=== PATIENT | female | born 1940 | race Caucasian/White ===

== ENCOUNTER 2017-06-16 12:59 | Outpatient (RCR) | payer MEDICARE, OTHER, SELFPAY ==
[2017-06-16 13:12] LABS: Prothrombin Time Fingerstick 29.8 SEC (11.9-14.4)
== END 2017-06-16 13:30 | disposition home or self-care (01) ==
LOC: LAB 12:59
PROVIDERS: Family Provider Family Medicine; PCP Family Medicine; Visit Provider Internal Medicine Cardiovascular Disease
DX: I48.1 Persistent atrial fibrillation (principal); Z79.01 Long term (current) use of anticoagulants
CPT/HCPCS: 36416; 85610

== ENCOUNTER 2017-07-22 13:50 | Outpatient (RCR) | payer MEDICARE, OTHER, SELFPAY ==
[2017-07-22 14:06] LABS: Prothrombin Time Fingerstick 26.5 SEC (11.9-14.4)
== END 2017-07-22 15:00 | disposition home or self-care (01) ==
LOC: LAB 13:50
PROVIDERS: Visit Provider Internal Medicine Cardiovascular Disease
DX: I48.1 Persistent atrial fibrillation (principal); Z79.01 Long term (current) use of anticoagulants
CPT/HCPCS: 36416; 85610

== ENCOUNTER 2017-08-18 14:07 | Outpatient (RCR) | payer MEDICARE, OTHER, SELFPAY ==
[2017-08-18 14:46] LABS: Prothrombin Time Fingerstick 33.6 SEC (11.9-14.4)
== END 2017-08-18 15:00 | disposition home or self-care (01) ==
LOC: LAB 14:07
PROVIDERS: Visit Provider Internal Medicine Cardiovascular Disease
DX: I48.1 Persistent atrial fibrillation (principal); Z79.01 Long term (current) use of anticoagulants
CPT/HCPCS: 36416; 85610

== ENCOUNTER → 2017-09-01 08:20 | Outpatient (CLI) | payer MEDICARE, OTHER, SELFPAY ==
[2017-09-01 10:37] LABS: AST(SGOT) 21 U/L (15-37); Alanine Aminotransfer ALT/SGPT 25 U/L (13-56); Albumin, Serum 3.2 g/dL (3.2-5.0); Alkaline Phosphatase 51 U/L (45-117); Bilirubin, Direct 0.14 mg/dL (0.00-0.30); Cholesterol 150 mg/dL (200); Globulin 3.5 g/dL (2.2-4.2); High Density Lipoprotein 69 mg/dL; Protein, Total 6.7 g/dL (6.4-8.2); Triglycerides 92 mg/dL; Very Low Density Lipoprotein 18 mg/dL (5-40)
== END ==
DX: E78.00 Pure hypercholesterolemia, unspecified (principal)
CPT/HCPCS: 36415; 80061; 80076

== ENCOUNTER 2017-09-18 13:08 | Outpatient (RCR) | payer MEDICARE, OTHER, SELFPAY ==
[2017-09-18 13:26] LABS: Prothrombin Time Fingerstick 38.6 SEC (11.9-14.4)
== END 2017-09-18 14:00 | disposition home or self-care (01) ==
LOC: LAB 13:08
PROVIDERS: Visit Provider Internal Medicine Cardiovascular Disease
DX: I48.1 Persistent atrial fibrillation (principal); Z79.01 Long term (current) use of anticoagulants
CPT/HCPCS: 36416; 85610

== ENCOUNTER 2017-10-30 13:44 | Outpatient (RCR) | payer MEDICARE, OTHER, SELFPAY ==
[2017-10-09 08:30] LABS: Prothrombin Time Fingerstick 30.2 SEC (11.9-14.4)
== END 2017-10-30 14:00 | disposition home or self-care (01) ==
LOC: LAB 13:44
PROVIDERS: Visit Provider Internal Medicine Cardiovascular Disease
DX: I48.1 Persistent atrial fibrillation (principal); Z79.01 Long term (current) use of anticoagulants
CPT/HCPCS: 36416; 85610

== ENCOUNTER 2017-12-04 13:21 | Outpatient (RCR) | payer MEDICARE, OTHER, SELFPAY | END 2017-12-04 14:00 | disposition home or self-care (01) | LOC: LAB 13:21 | PROVIDERS: Visit Provider Internal Medicine Cardiovascular Disease | DX: I48.1 Persistent atrial fibrillation (principal); Z79.01 Long term (current) use of anticoagulants | CPT/HCPCS: 36416; 85610 ==

== ENCOUNTER 2017-12-30 12:40 | Outpatient (RCR) | payer MEDICARE, OTHER, SELFPAY ==
[2017-12-30 14:01] LABS: Prothrombin Time Fingerstick 30.4 SEC (11.9-14.4)
== END 2017-12-30 14:00 | disposition home or self-care (01) ==
LOC: LAB 12:40
PROVIDERS: Visit Provider Internal Medicine Cardiovascular Disease
DX: I48.1 Persistent atrial fibrillation (principal); Z79.01 Long term (current) use of anticoagulants
CPT/HCPCS: 36416; 85610

== ENCOUNTER → 2018-01-19 10:25 | Outpatient (CLI) | payer MEDICARE, OTHER, SELFPAY | PROVIDERS: Visit Provider Obstetrics & Gynecology | DX: Z12.31 Encounter for screening mammogram for malignant neoplasm of breast (principal) | CPT/HCPCS: 77063; 77067 ==

== ENCOUNTER 2018-01-29 08:48 | Outpatient (RCR) | payer MEDICARE, OTHER, SELFPAY ==
[2018-01-29 09:06] LABS: Prothrombin Time Fingerstick 17.5 SEC (11.9-14.4)
== END 2018-01-29 10:00 | disposition home or self-care (01) ==
LOC: LAB 08:48
PROVIDERS: Visit Provider Internal Medicine Cardiovascular Disease
DX: I48.1 Persistent atrial fibrillation (principal); Z79.01 Long term (current) use of anticoagulants
CPT/HCPCS: 36416; 85610

== ENCOUNTER 2018-02-26 14:16 | Outpatient (RCR) | payer MEDICARE, OTHER, SELFPAY ==
[2018-02-26 14:30] LABS: Prothrombin Time Fingerstick 31.6 SEC (11.9-14.4)
== END 2018-02-26 16:00 | disposition home or self-care (01) ==
LOC: LAB 14:16
PROVIDERS: Visit Provider Internal Medicine Cardiovascular Disease
DX: I48.91 Unspecified atrial fibrillation (principal); Z79.01 Long term (current) use of anticoagulants
CPT/HCPCS: 36416; 85610

== ENCOUNTER 2018-03-20 13:33 | Outpatient (RCR) | payer MEDICARE, OTHER, SELFPAY ==
[2018-03-20 13:45] LABS: Prothrombin Time Fingerstick 28.4 SEC (11.9-14.4)
== END 2018-03-20 15:00 | disposition home or self-care (01) ==
LOC: LAB 13:33
PROVIDERS: Referring Provider Internal Medicine Cardiovascular Disease; Visit Provider Internal Medicine Cardiovascular Disease
DX: I48.91 Unspecified atrial fibrillation (principal); Z79.01 Long term (current) use of anticoagulants
CPT/HCPCS: 36416; 85610

== ENCOUNTER 2018-04-20 10:27 | Outpatient (RCR) | payer MEDICARE, OTHER, SELFPAY ==
[2018-04-20 10:41] LABS: Prothrombin Time Fingerstick 32.5 SEC (11.9-14.4)
== END 2018-05-08 12:22 | disposition home or self-care (01) ==
LOC: LAB 10:27
PROVIDERS: Referring Provider Internal Medicine Cardiovascular Disease; Visit Provider Internal Medicine Cardiovascular Disease
DX: I48.91 Unspecified atrial fibrillation (principal); Z79.01 Long term (current) use of anticoagulants
CPT/HCPCS: 36416; 85610

== ENCOUNTER 2018-05-20 08:06 | Outpatient (RCR) | payer MEDICARE, OTHER, SELFPAY ==
[2018-02-26 13:38] VITALS: BMI 39.9
[2018-05-20 08:21] LABS: Prothrombin Time Fingerstick 29.7 SEC (11.9-14.4)
--- OUTSIDE RECORDS SUMMARY | 2018-07-06 03:15 | XMS RPT_ITS ---
:1940 Author Organization [place] Support Name Relationship Address Phone R Unavailable Unavailable Unavailable TEICHMER, ELIEL Unavailable Unavailable + [place] [address] TAB OCASIO JR Unavailable Unavailable + [place] [address] R Unavailable Unavailable Unavailable TEICHMER, ELIEL Unavailable Unavailable + GERONIMO OCASIO JRE Unavailable Unavailable + R Unavailable Unavailable Unavailable TEICHMER, ELIEL Unavailable Unavailable + [place] [address] GERONIMO OCASIO JRE Unavailable [address] + [place] [address] R Unavailable Unavailable Unavailable TEICHMER, ELIEL Unavailable Unavailable + [place] [address] GERONIMO OCASIO JRE Unavailable [address] + [place] [address] R Unavailable Unavailable Unavailable TEICHMER, ELIEL Unavailable Unavailable + [place] [address] GERONIMO OCASIO JRE Unavailable [address] + [place] [address] R Unavailable Unavailable Unavailable AMARJIT CALIXTO TAB Unavailable [address] + [place] [address] R Unavailable Unavailable Unavailable ANDREW OCASIO JRLIE Unavailable [address] + [place] [address] R Unavailable Unavailable Unavailable AMARJIT CALIXTO TAB Unavailable [address] + [place] [address] R Unavailable Unavailable Unavailable AMARJIT CALIXTO TAB Unavailable [address] + [place] [address] R Unavailable Unavailable Unavailable TEICHMER JR, TAB Unavailable [address] + [place] [address] R Unavailable Unavailable Unavailable TEICHMER JR TAB Unavailable [address] + [place] [address] R Unavailable Unavailable Unavailable TEICHMER JR TAB Unavailable [address] + [place] [address] R Unavailable Unavailable Unavailable JANELLEMER JR TAB Unavailable [address] + [place] [address] R Unavailable Unavailable Unavailable R Unavailable Unavailable Unavailable TEICHMER , TAB Unavailable [address] + [place] [address] R Unavailable Unavailable Unavailable TEICHMER TAB Unavailable [address] + [place] [address] TEICHMER TAB Unavailable [address] + [place] [address] R Unavailable Unavailable Unavailable SUBHAICHJAROD TAB Unavailable [address] + [place] [address] TEICHMER TAB Unavailable [address] + [place] [address] R Unavailable Unavailable Unavailable SUBHAICHMER TAB Unavailable [address] + [place] [address] TEICHMER, TAB Unavailable [address] + [place] [address] Care Team Providers Name Role Phone Cam Baires Attending Unavailable Cam Baires Referring Unavailable Jg, Olu Primary Care Unavailable Cam Baires Attending Unavailable Cam Baires Referring Unavailable Jg, Olu Primary Care Unavailable Cam Baires Attending Unavailable Olu Gregorio Referring Unavailable Cam Baires Attending Unavailable Cam Baires Referring Unavailable Jg, Olu Primary Care Unavailable Izaiah Pritchett Attending Unavailable Jg, Olu Referring Unavailable Jg, Olu Primary Care Unavailable JgChuyOlu Attending Unavailable Jg, Olu Referring Unavailable Jg, Olu Primary Care Unavailable Cam Baires Attending Unavailable Cam Baires Referring Unavailable Jg, Olu Primary Care Unavailable Moodispaw, Cam Attending Unavailable Moodispaw, Cam Referring Unavailable Jg, Olu Primary Care Unavailable Moodispaw, Cam Attending Unavailable Moodispaw, Cam Referring Unavailable Jg, Olu Primary Care Unavailable Moodispaw, Cam Attending Unavailable Moodispaw, Cam Referring Unavailable Jg, Olu Primary Care Unavailable Moodispaw, Cam Attending Unavailable Moodispaw, Cam Referring Unavailable Jg, Olu Primary Care Unavailable Weeman, Izaiah Attending Unavailable Weeman, Izaiah Referring Unavailable Jg, Olu Primary Care Unavailable Moodispaw, Cam Attending Unavailable Moodispaw, Cam Referring Unavailable Jg, Olu Primary Care Unavailable Shreyas, Izaiah Napier Attending Unavailable Jg, Olu Referring Unavailable Jg, Olu Primary Care Unavailable Moodispaw, Cam Attending Unavailable Moodispaw, Cam Referring Unavailable Jg, Olu Primary Care Unavailable Moodispaw, Cam Attending Unavailable Moodispaw, Cam Referring Unavailable Jg, Olu Primary Care Unavailable Moodispaw, Cam Attending Unavailable Moodispaw, Cam Referring Unavailable Jg, Olu Primary Care Unavailable PROBLEMS PROBLEMS DATE TYPE CONDITION / CODE ATTENDING STATUS SOURCE 06/08/2018 Unknown I48.91 - Moodispawaqas, Cam Active [place] Unspecified atrial Community fibrillation / Hospital I48.91(ICD-10) Repository 01/08/2018 Unknown I48.1 - Persistent Moodispaw, Cam Active [place] atrial Community fibrillation / Hospital I48.1(ICD-10) Repository 09/01/2017 Unknown E78.00 - Pure Jg, Olu Active [place] hypercholesterolem Community ia, unspecified / Hospital E78.00(ICD-10) Repository PROCEDURES PROCEDURES No Procedure Records FoundRESULTS RESULTS PROTIME W/INR Collected: 06/22/2018 Status: F Source: [place] FINGERSTICK 2:00 PM [facility] H[facility]PITAL REPOSITORY TYPE CODE TESTS RESULT OUT OF REFERENCE UNITS RANGE LAB L9200.1001 11.9-14.4 SEC High PROTIME ISTAT 33.9 Result Comment: Reference Range 11.9 - 14.4 LAB L9200.2000 Normal INR ISTAT 3.00 Result Comment: Critical Value > 3.5 Performed By: #### [id number] #### [facility] Point of Care [facility] [address] [place], [place] [address] PROTIME W/INR Collected: 05/20/2018 Status: F Source: [place] FINGERSTICK 8:[address] [facility] REPOSITORY TYPE CODE TESTS RESULT OUT OF REFERENCE UNITS RANGE LAB L9200.1001 11.9-14.4 SEC High PROTIME ISTAT 29.7 Result Comment: Reference Range 11.9 - 14.4 LAB L9200.2000 Normal INR ISTAT 2.60 Result Comment: Critical Value > 3.5 Performed By: #### [id number] #### [facility] Point of Care [address] [place] [address] PROTIME W/INR Collected: 04/20/2018 Status: F Source: [place] FINGERSTICK 10:[address] [facility] REPOSITORY TYPE CODE TESTS RESULT OUT OF REFERENCE UNITS RANGE LAB L9200.1001 11.9-14.4 SEC High PROTIME ISTAT 32.5 Result Comment: Reference Range 11.9 - 14.4 LAB L9200.2000 Normal INR ISTAT 2.90 Result Comment: Critical Value > 3.5 Performed By: #### [id number] #### [facility] Point of Care [address] [place] [address] PROTIME W/INR Collected: 03/20/2018 Status: F Source: [place] FINGERSTICK 1:[address] [facility] REPOSITORY TYPE CODE TESTS RESULT OUT OF REFERENCE UNITS RANGE LAB L9200.1001 11.9-14.4 SEC High PROTIME ISTAT 28.4 Result Comment: Reference Range 11.9 - 14.4 LAB L9200.2000 Normal INR ISTAT 2.50 Result Comment: Critical Value > 3.5 Performed By: #### [id number] #### [facility] Point of Care [address] [place] [address] PROTIME W/INR Collected: 02/26/2018 Status: F Source: [place] FINGERSTICK 2:[address] [facility] REPOSITORY TYPE CODE TESTS RESULT OUT OF REFERENCE UNITS RANGE LAB L9200.1001 11.9-14.4 SEC High PROTIME ISTAT 31.6 Result Comment: Reference Range 11.9 - 14.4 LAB L9200.2000 Normal INR ISTAT 2.80 Result Comment: Critical Value > 3.5 Performed By: #### [id number] #### [facility] [place] [address] CARDIOLOGY VISIT Observed: 02/26/2018 Status: F Source: [place] REPORT 2:[address] [facility] REPOSITORY [facility] [address] [place] [address] OFFICE VISIT Date of Service: 02/26/18 MR#: [id number] Acct: [id number] Name: CLAUDIA OCASIO Rep #: [id number] : 1940 Provider: JAYLEN Pritchett Age/Sex: 77/F Location: [facility] Status: Signed HPI HPI Details: CLAUDIA OCASIO, is a 77 F who presents to the office today for a cardiovascular outpatient follow-up. She has history of atrial fibrillation/flutter status post failed cardioversion in March 2015, hypertension, and hyperlipidemia. Pt. denies chest, arm, jaw, or neck discomfort. Her exercise tolerance is stable. Pt. denies symptoms of near syncope, or syncopal episodes. Pt. denies claudication issues. Pt. denies orthopnea, PND, blood in urine, blood in stool, myalgia, or unexplainable fatigue. She states having palpitations daily since the passing of her associated with lightheadedness and dizziness at times. She states right leg lower edema d/t arthritis that improves with compression stockings. Intake Vital Signs02/26/18 Height 5 ft 6 in 02/26/18 Weight: 247 lb 02/26/18 Body Mass Index (BMI) 39.9 02/26/18 Blood Pressure 166/86 02/26/18 Blood Pressure Location Lt brachial Intake Visit Reasons: 6 M FU In Home Caregiver Required: No Accompanied by: None Is patient in pain?: No Allergies amiodarone Adverse Reaction (Intermediate, Verified 02/26/18 13:45) Rash/Itching Medications Aspirin [Aspirin, Baby] 81 mg PO DAILY@0800 03/27/15 [History Confirmed 02/26/18] Enalapril Maleate [Vasotec] 20 mg PO DAILY 03/27/15 [History Confirmed 02/26/18] Hydrochlorothiazide [Hctz] 25 mg PO DAILY 03/27/15 [History Confirmed 02/26/18] Multivitamins,Therapeutic [Multivitamin] 1 tab PO DAILY 03/27/15 [History Confirmed 02/26/18] Simvastatin [Zocor] 20 mg PO QHS 03/27/15 [History Confirmed 02/26/18] Ubidecarenone/Vit E Acetate [Co Q-10 100 mg Softgel] 1 ea PO DAILY 03/27/15 [History Confirmed 02/26/18] warfarin 6 mg tablet 6 mg PO DAILY@1700 #90 tab 07/14/17 [Rx Confirmed 02/26/18] diltiazem CD 180 mg capsule,extended release 24 hr 180 mg PO BID #60 cap 07/21/17 [Rx Confirmed 02/26/18] ascorbic acid (vitamin C) 500 mg tablet 500 mg PO QDAY 08/21/17 [History Confirmed 02/26/18] calcium carbonate 600 mg(1,500 mg)-vitamin D3 800 unit chewable tablet 1 tab PO QDAY tab 08/26/17 [History Confirmed 02/26/18] ranitidine 150 mg tablet 150 mg PO DAILY PRN 08/26/17 [History Confirmed 02/26/18] warfarin 4 mg tablet 4 mg PO QDAY #30 tab 10/30/17 [Rx Confirmed 02/26/18] Ejection fraction %: 65 to 70 PFSH Medical History Palpitations (Chronic) [employer]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) HLD (hyperlipidemia) (Chronic) Benign essential hypertension (Chronic) Atrial fibrillation (Chronic) Chest tightness (Resolved) Fatigue (Resolved) Shortness of breath (Resolved) Surgical History Cataract (Chronic 06/18/16) H/O total hysterectomy (Chronic 2003) History of right breast biopsy (Resolved) History of tonsillectomy (Resolved) Family History Father CAD (coronary artery disease) Brother CAD (coronary artery disease) Cancer Alzheimer disease Sister Cancer Mother Alzheimer disease Hypertension Brother Cancer Social History Smoking Status: Former smoker ROS Const Const: Negative for weakness, body ache, fever(s), chills or fatigue ENT ENT: Positive for dizziness Cardio Chest Pain: No Palpitations: Yes Edema: None, Right Muscle aches with walking: None Resp Respiratory: Negative for SOB with activity, SOB at rest, SOB orthopnea\SOB lying down or paroxysmal nocturnal dyspnea GI GI: Negative nausea, black,tarry stools, bright, red blood in stools or vomiting blood/hematemesis : Negative for hematuria or frequent nighttime urination/ nocturia Musc Musc: Negative for muscle aches/ myalgia Skin Skin: Negative non-healing lesions or rash Neuro Neuro: Positive for lightheadedness and dizziness; negative for near syncope, syncope, orthostatic symptoms or weakness Endo Endo: Negative for fatigue Allergy Allergy/Immunology: Negative for rash Cardiology Exam Const Appearance: cooperative, healthy appearing, comfortable and no acute distress Nutritional Appearance: obese Orientation: alert, awake and oriented x3 Head Head: normal to inspection Mouth: oral mucosae normal Neck Neck: no JVD and normal visual inspection Carotids: normal carotid upstroke Chest Chest inspection: normal inspection of the chest and normal respiratory effort Auscultation: Bilateral: Clear to Auscultation Cardio Rate: regular rate Rhythm: irregularly irregular Heart sounds: S1 normal and S2 normal; negative rub, gallop or murmur GI GI: normal to inspection and obese Neuro General: alert, awake, oriented x3 and CN's II-XI intact bilaterally Skin Skin: no rashes or lesions noted Extremities Pulses: Normal: Right Posterior Tibial Pulse, Left Posterior Tibial Pulse, Right Radial Pulse, Left Radial Pulse Lower Extremity Edema: None: Left, +1: Right (trace) Psych Psychological: normal affect Supplemental Info Cardiovascular stress test from January 2017 was negative for stress-induced myocardial ischemia and reported an ejection fraction of 81%. Echocardiogram from March 2015 showed an estimated ejection fraction of 70%, mildly enlarged left atrium, mildly enlarged right atrium, mild mitral valve insufficiency, moderate tricuspid valve insufficiency, mild focal aortic valve thickening, trivial aortic valve insufficiency, trivial pulmonic valve insufficiency, and an RVSP of 29 mmHg. Assessment AND Plan 1. Chronic atrial fibrillation I48.2 DCCV 03/28/2015; Plan Patient's heart rate remains well controlled. She is currently on anticoagulation with Coumadin therapy. She will continue current medications and we will continue to monitor. 2. Palpitations R00.2 Plan She does describe intermittent episodes of palpitations. These are very short and are associated with intermittent lightheadedness and dizziness. She notes that these have increased since the passing of her . At this time we will continue current medications and we will continue to monitor. She was instructed to contact our office if there is an increase in frequency or any worsending associated secondary symptoms. 3. Benign essential hypertension I10 Plan Her blood pressure is slightly elevated today in office. This is being attributed to psychosocial stressors at this time. She was asked to continue to monitor this at home. She was instructed to contact office if her blood pressure increases or remains elevated. At this time we will continue to monitor. 4. Mixed hyperlipidemia E78.2 Plan this is being monitored by primary care physician. She states an upcoming appointment with with him in which her cholesterol may be reevaluated. She will continue with current statin medication. 5. USP (current) use of anticoagulants Z79.01 Plan She will continue with Coumadin therapy maintaining an INR goal of 2 3. Plan Detail Additional Comments Thank you for allowing us to participate in the patient's plan of care, if you have any questions please do not hesitate to call. This note was generated using a voice recognition system and there may be incorrect words, spelling, or punctuation that were not noted upon reviewing the office note prior to saving. Coding Level of Care Code Off vis,est,level 3 Diagnoses Chronic atrial fibrillation I48.2 Atrial fibrillation type: chronic Palpitations R00.2 Benign essential hypertension I10 Mixed hyperlipidemia E78.2 Hyperlipidemia type: mixed hyperlipidemia USP (current) use of anticoagulants Z79.01 Coding Level of Care Code Off vis,est,level 3 Diagnoses Chronic atrial fibrillation I48.2 Atrial fibrillation type: chronic Palpitations R00.2 Benign essential hypertension I10 Mixed hyperlipidemia E78.2 Hyperlipidemia type: mixed hyperlipidemia USP (current) use of anticoagulants Z79.01 02/26/18 1417 <Electronically signed by Izaiah RODRIGUEZ> Date Izaiah RODRIGUEZ Cosigner Signature: Date (if applicable) CC: Olu Gregorio PROTIME W/INR Collected: 02/12/2018 Status: F Source: [place] FINGERSTICK 3:[address] [facility] REPOSITORY TYPE CODE TESTS RESULT OUT OF REFERENCE UNITS RANGE LAB L9200.1001 11.9-14.4 SEC High PROTIME ISTAT 31.0 Result Comment: Reference Range 11.9 - 14.4 LAB L9200.2000 Normal INR ISTAT 2.70 Result Comment: Critical Value > 3.5 Performed By: #### [id number] #### [facility] Point of Care [address] [place] [address] PROTIME W/INR Collected: 01/29/2018 Status: F Source: [place] FINGERSTICK 8:[address] [facility] REPOSITORY TYPE CODE TESTS RESULT OUT OF REFERENCE UNITS RANGE LAB L9200.1001 11.9-14.4 SEC High PROTIME ISTAT 17.5 Result Comment: Reference Range 11.9 - 14.4 LAB L9200.1999 Normal INR ISTAT 1.50 Result Comment: Critical Value > 3.5 Performed By: #### [id number] #### [facility] Point of Care [address] [place] [address] SCREENING MAMM (CAD), Observed: 01/19/2018 Status: F Source: [place] BILAT 10:[address] [facility] REPOSITORY [facility] Imaging Services [address] [place] [address] SCREENING MAMM (CAD), BILAT MR#: [id number] Acct: [id number] Name: CLAUDIA OCASIO Rep #: [id number] : 1940 F 77 From: Matheus Abarca MD PCP: Olu Gregorio Status: [facility] CLI Study: SCREENING MAMM (CAD), BILAT Date of Exam: 01/19/18 Exam# [id number] Ordering Dr: Izaiah Aviles MD MAMMOGRAPHY - BILATERAL SCREENING REASON FOR EXAM: Female, 77 years old. Routine annual screening examination. PERTINENT HISTORY: Non-contributory. Remote right stereotactic biopsy. TECHNIQUE: Digital bilateral breast billy (3D mammographic acquisition) in the CC and MLO projections. 2-D mediolateral oblique (MLO) and craniocaudad (CC) views of both breasts were obtained. CAD: Full Field Digital Mammography with Computer Added Detection was performed. COMPARISON: Comparison is made with prior study dated July 09, 2013 and November 07, 2014. FINDINGS: Breast Composition: There are scattered areas of fibroglandular density. There are no dominant masses or suspicious calcifications. 2 tissue markers are seen in the right breast. No other significant abnormalities are identified. There has been no significant change since the prior study. BI/SCREENING MAMM (CAD), BILAT IMPRESSION: Stable bilateral screening mammogram. Yearly follow-up mammogram recommended. (A) ASSESSMENT CATEGORY: BIRADS Category 2: Benign. A letter regarding these results will be sent to the patient by the facility within 30 days. Approximately 10% of breast cancers are not detected by mammography. A normal mammogram should not delay biopsy of a clinically suspicious abnormality. [id number] Electronically Signed: Matheus Abarca MD at 8:38 EDT Tel [phone], Service support , CC: Olu Gregorio; Izaiah Aviles MD Critical Care Nurse: Signed PROTIME W/INR Collected: 12/30/2017 Status: F Source: [place] FINGERSTICK 1:[address] [facility] REPOSITORY TYPE CODE TESTS RESULT OUT OF REFERENCE UNITS RANGE LAB L9200.1001 11.9-14.4 SEC High PROTIME ISTAT 30.4 Result Comment: Reference Range 11.9 - 14.4 LAB L9200.2000 Normal INR ISTAT 2.70 Result Comment: Critical Value > 3.5 Performed By: #### [id number] #### [facility] Point of Care [address] [place] [address] PROTIME W/INR Collected: 12/04/2017 Status: F Source: [place] FINGERSTICK 1:[address] [facility] REPOSITORY TYPE CODE TESTS RESULT OUT OF REFERENCE UNITS RANGE LAB L9200.1001 11.9-14.4 SEC High PROTIME ISTAT 33.0 Result Comment: Reference Range 11.9 - 14.4 LAB L9200.2000 Normal INR ISTAT 2.90 Result Comment: Critical Value > 3.5 Performed By: #### [id number] #### [facility] Point of Care [address] [place] [address] PROTIME W/INR Collected: 10/30/2017 Status: F Source: [place] FINGERSTICK 1:[address] [facility] REPOSITORY TYPE CODE TESTS RESULT OUT OF REFERENCE UNITS RANGE LAB L9200.1001 11.9-14.4 SEC High PROTIME ISTAT 21.0 Result Comment: Reference Range 11.9 - 14.4 LAB L9200.2000 Normal INR ISTAT 1.80 Result Comment: Critical Value > 3.5 Performed By: #### [id number] #### [facility] Point of Care [address] [place] [address] [place] [address] PROTIME W/INR Collected: 10/09/2017 Status: F Source: [place] FINGERSTICK 8:[address] [facility] REPOSITORY TYPE CODE TESTS RESULT OUT OF REFERENCE UNITS RANGE LAB L9200.1001 11.9-14.4 SEC High PROTIME ISTAT 30.2 Result Comment: Reference Range 11.9 - 14.4 LAB L9200.2000 Normal INR ISTAT 2.60 Result Comment: Critical Value > 3.5 Performed By: #### [id number] #### [facility] Point of Care [address] [place] [address] PROTIME W/INR Collected: 09/18/2017 Status: F Source: [place] FINGERSTICK 1:[address] [facility] REPOSITORY TYPE CODE TESTS RESULT OUT OF REFERENCE UNITS RANGE LAB L9200.1001 11.9-14.4 SEC High PROTIME ISTAT 38.6 Result Comment: Reference Range 11.9 - 14.4 LAB L9200.2000 Normal INR ISTAT 3.40 Result Comment: Critical Value > 3.5 Performed By: #### [id number] #### [facility] Point of Care [address] [facility] [place] [address] LIVER PROFILE Collected: 09/01/2017 Status: F Source: [place] 8:[address] [facility] REPOSITORY TYPE CODE TESTS RESULT OUT OF RANGE REFERENCE UNITS LAB L501.1500 6.4-8.2 g/dL Normal T PROT 6.7 LAB L501.1800 3.2-5.0 g/dL Normal ALB 3.2 LAB L501.1950 2.2-4.2 g/dL Normal GLOB 3.5 LAB L501.4100 15-37 U/L Normal AST 21 LAB L501.4305 45-117 U/L Normal ALK P 51 LAB L501.4405 13-56 U/L Normal ALT 25 Result Comment: Please note revised ALT reference range effective 2017. LAB L501.4600 0.20-1.00 mg/dL Normal T BILI 0.50 LAB L501.4700 0.00-0.30 mg/dL Normal D BILI 0.14 Performed By: #### L500.3400, L500.4100 #### [facility] [address] [facility] [place], [place], [address] LIPID PROFILE Collected: 09/01/2017 Status: F Source: [place] 8:[address] [facility] REPOSITORY TYPE CODE TESTS RESULT OUT OF RANGE REFERENCE UNITS LAB L501.4900 200 mg/dL Normal CHOL 150 Result Comment: <200 mg/dL Desirable 200-240 mg/dL Borderline >240 mg/dL High Risk LAB L501.5000 mg/dL Normal TRIG 92 Result Comment: The drugs N-Acetylcysteine and Metamizole may falsely depress this assay. Serum Triglycerides Reference Interval Normal <150 mg/dL Borderline high 150 - 199 mg/dL High 200 - 499 mg/dL Very High > or = 500 mg/dL LAB L501.6400 mg/dL Normal HDL 69 Result Comment: The drugs N-Acetylcysteine and Metamizole may falsely depress this assay. Reference Range HDL <40 mg/dL Low HDL Cholesterol HDL >or= 60 mg/dL High HDL Cholesterol LAB L501.6500 0-130 mg/dL Normal LDL 63 LAB L501.6600 5-40 mg/dL Normal VLDL 18 Performed By: #### L500.3400, L500.4100 #### [facility] [address] [place], [address] CARDIOLOGY VISIT Observed: 08/27/2017 Status: F Source: [place] REPORT 2:[address] [facility] REPOSITORY [place] [facility] [address] [place] [address] OFFICE VISIT Date of Service: 08/26/17 MR#: [id number] Acct: [id number] Name: CLAUDIA OCASIO Rep #: [id number] : 1940 Provider: JAYLEN Pritchett Age/Sex: 77/F Location: [facility] Status: Signed HPI HPI Details: CLAUDIA OCASIO, is a 77 F who presents to the office today for a cardiovascular outpatient follow-up. She has history of atrial fibrillation/flutter status post failed cardioversion in March 2105, hypertension, and hyperlipidemia. Pt. denies chest, arm, jaw, or neck discomfort. Her exercise tolerance is stable. Pt. denies symptoms of palpitations, dizziness, near syncope, or syncopal episodes. Pt. denies edema or claudication issues. Pt. denies orthopnea, PND, fever, chills, blood in urine, blood in stool, myalgia, or unexplainable fatigue. Patient states some arm weakness when she carries something heavy this occurs mostly in her left arm. Intake Vital Signs08/26/17 Height 5 ft 6 in 08/26/17 Weight: 247 lb 08/26/17 Body Mass Index (BMI) 39.9 08/26/17 Blood Pressure 122/76 Intake Visit Reasons: 6 M FU Allergies amiodarone Adverse Reaction (Intermediate, Verified 08/21/17 10:55) Rash/Itching Medications Aspirin [Aspirin, Baby] 81 mg PO DAILY@0800 03/27/15 [History Confirmed 08/21/17] Enalapril Maleate [Vasotec] 20 mg PO DAILY 03/27/15 [History Confirmed 08/26/17] Hydrochlorothiazide [Hctz] 25 mg PO DAILY 03/27/15 [History Confirmed 08/21/17] Multivitamins,Therapeutic [Multivitamin] 1 tab PO DAILY 03/27/15 [History Confirmed 08/21/17] Simvastatin [Zocor] 20 mg PO QHS 03/27/15 [History Confirmed 08/21/17] Ubidecarenone/Vit E Acetate [Co Q-10 100 mg Softgel] 1 ea PO DAILY 03/27/15 [History Confirmed 08/21/17] warfarin 6 mg tablet 6 mg PO DAILY@1700 #90 tab 07/14/17 [Rx Confirmed 08/26/17] diltiazem CD 180 mg capsule,extended release 24 hr 180 mg PO BID #60 cap 07/21/17 [Rx Confirmed 08/21/17] ascorbic acid (vitamin C) 500 mg tablet 500 mg PO QDAY 08/21/17 [History Confirmed 08/21/17] calcium carbonate 600 mg(1,500 mg)-vitamin D3 800 unit chewable tablet 1 tab PO QDAY tab 08/26/17 [History Confirmed 08/26/17] ranitidine 150 mg tablet 150 mg PO DAILY PRN 08/26/17 [History Confirmed 08/26/17] PFSH Medical History 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) HLD (hyperlipidemia) (Chronic) Benign essential hypertension (Chronic) Atrial fibrillation (Chronic) Chest tightness (Acute) Fatigue (Acute) Shortness of breath (Acute) Surgical History Cataract (Chronic 06/18/16) H/O total hysterectomy (Chronic 2003) Family History Father CAD (coronary artery disease) Brother CAD (coronary artery disease) Cancer Alzheimer disease Sister Cancer Mother Alzheimer disease Hypertension Social History Smoking Status: Former smoker ROS Const Const: Negative for fatigue, weakness, body ache, fever(s) or chills ENT ENT: Negative for dizziness Cardio Chest Pain: No Palpitations: No Edema: None Muscle aches with walking: None Resp Respiratory: Positive for SOB with activity (this is not worsening); negative for SOB at rest, SOB orthopnea\SOB lying down or paroxysmal nocturnal dyspnea GI GI: Negative nausea, black,tarry stools, bright, red blood in stools or vomiting blood/hematemesis : Negative for hematuria or frequent nighttime urination/ nocturia Musc Musc: Positive for muscle weakness (When carries something heavy); negative for muscle aches/ myalgia Neuro Neuro: Positive for lightheadedness (with weather changes fuzzy head); negative for weakness, dizziness, near syncope, syncope or orthostatic symptoms Endo Endo: Negative for fatigue Cardiology Exam Const Appearance: cooperative, healthy appearing, comfortable and no acute distress Orientation: alert, awake and oriented x3 Head Head: normal to inspection Mouth: oral mucosae normal Neck Neck: no JVD and normal visual inspection Carotids: normal carotid upstroke Chest Chest inspection: normal inspection of the chest and normal respiratory effort Auscultation: Bilateral: Clear to Auscultation Cardio Rate: regular rate Rhythm: irregular rhythm Heart sounds: S1 normal and S2 normal; negative rub or gallop GI GI: normal to inspection Neuro General: alert, awake, oriented x3 and CN's II-XI intact bilaterally Skin Skin: no rashes or lesions noted Extremities Pulses: Normal: Right Posterior Tibial Pulse, Left Posterior Tibial Pulse, Right Radial Pulse, Left Radial Pulse Lower Extremity Edema: None: Left, +1: Right (trace) Psych Psychological: normal affect Supplemental Info Cardiovascular stress test from January 2017 was negative for stress-induced myocardial ischemia and reported an ejection fraction of 81%. Echocardiogram from March 2015 showed an estimated ejection fraction of 70%, mildly enlarged left atrium, mildly enlarged right atrium, mild mitral valve insufficiency, moderate tricuspid valve insufficiency, mild focal aortic valve thickening, trivial aortic valve insufficiency, trivial pulmonic valve insufficiency, and an RVSP of 29 mmHg. Assessment AND Plan 1. Chronic atrial fibrillation I48.2 DCCV 03/28/2015; Plan - MICHAEL Espinosa Her echocardiogram from March 2015 showed estimated ejection fraction of 70%, mildly enlarged left atrium, and mildly enlarged right atrium. Her stress test from January 2017 was negative for stress-induced myocardial ischemia. Patient's heart rhythm is irregular today in office, but controlled. She will continue with current medications which include calcium channel adelina and Coumadin therapy. We will continue to monitor this. 2. Mixed hyperlipidemia E78.2 Plan - MICHAEL Espinosa Patient states this is being monitored by primary care physician and was noted to be good. She will continue with current cholesterol lowering medication. 3. Benign essential hypertension I10 Plan - MICHAEL Espinosa Patient's blood pressure is well-controlled today in the office. We will continue to monitor this. We will not make any medication regimen changes. Plan Detail Additional Comments - MICHAEL Espinosa Discussed the above patient with Dr. Bustamante in Dr. Baires's absence, he agrees with the plan of care. Thank you for allowing us to participate in the patients plan of care, if you have any questions please do not hesitate to call. This note was generated using a voice recognition system and there may be incorrect words, spelling or punctuation that were not noted when reviewing the office note prior to saving. Follow Up 6 Months (SLAB LIFTING ENGINEER/PA) 12 Months (PFM) Coding Level of Care Code Off vis,est,level 3 Diagnoses Chronic atrial fibrillation I48.2 Atrial fibrillation type: chronic Mixed hyperlipidemia E78.2 Hyperlipidemia type: mixed hyperlipidemia Benign essential hypertension I10 Coding Level of Care Code Off vis,est,level 3 Diagnoses Chronic atrial fibrillation I48.2 Atrial fibrillation type: chronic Mixed hyperlipidemia E78.2 Hyperlipidemia type: mixed hyperlipidemia Benign essential hypertension I10 08/26/17 1636 <Electronically signed by Izaiah Pritchett SLAB LIFTING ENGINEER-C> Date Izaiah Pritchett SLAB LIFTING ENGINEER-C 08/27/17 1443<Electronically signed by Aamir Bustamante MD> Cosigner Signature: Date (if applicable) Aamir Bustamante MD CC: Olu Gregorio MD PROTIME W/INR Collected: 08/18/2017 Status: F Source: [place] [facility] 2:[address] [facility] REPOSITORY TYPE CODE TESTS RESULT OUT OF REFERENCE UNITS RANGE LAB L9200.1001 11.9-14.4 SEC High PROTIME ISTAT 33.6 Result Comment: Reference Range 11.9 - 14.4 LAB L9200.2000 Normal INR ISTAT 2.90 Result Comment: Critical Value > 3.5 Performed By: #### L9200.0000 #### [facility] Laboratory Point of Care [address] [place] [address] PROTIME W/INR Collected: 07/22/2017 Status: F Source: [place] F[place]ICK 2:[address] [facility] REPOSITORY TYPE CODE TESTS RESULT OUT OF REFERENCE UNITS RANGE LAB L9200.1001 11.9-14.4 SEC High PROTIME ISTAT 26.5 Result Comment: Reference Range 11.9 - 14.4 LAB L9200.2000 Normal INR ISTAT 2.30 Result Comment: Critical Value > 3.5 Performed By: #### L9200.0000 #### [facility] Laboratory Point of Care [address] [place] [address] ALLERGIES ALLERGIES DATE TYPE / CODE NAME / CODE REACTION SEVERITY SOURCE 02/26/2018 Drug amiodarone/F0 Rash/Itching MO [facility] Allergy/4160 [id number](RXNO Hospital 29469(SNOMED RM) Repository CT) 03/27/2015 Drug No Known Unknown [facility] Allergy/4160 Allergies/F00 Hospital 50308(SNOMED 2636814(RXNOR Repository CT) M) ENCOUNTERS ENCOUNTERS ADMIT/DISCHARGE ACCOUNT ADMITTING ENCOUNTER LOCATION SOURCE NUMBER [facility] 06/22/2018 [id number] Ambulatory [place] [facility] ing:LAB Repository 05/20/2018/ [id number] Ambulatory [place] 8 4 [facility] ing:LAB Repository 04/20/2018/ [id number] Ambulatory [place] 7 [facility] ing:LAB Repository 03/20/2018/ [id number] Ambulatory [place] 8 6 [facility] ing:LAB Repository 02/26/2018/ [id number] Ambulatory [place] 8 0 [facility] ing:LAB Repository 02/26/2018/ [id number] Ambulatory BMSBuilding:B [place] 4 [facility] Repository 01/29/2018/ [id number] Ambulatory [place] 9 [facility] ing:LAB Repository 01/19/2018 [id number] Ambulatory [place] [facility] ing:OPBI Repository 12/30/2017/ [id number] Ambulatory [place] 8 8 [facility] ing:LAB Repository 12/04/2017/ [id number] Ambulatory [place] 8 7 [facility] ing:LAB Repository 10/30/2017/ [id number] Ambulatory [place] 9 [facility] ing:LAB Repository 09/18/2017/ [id number] Ambulatory [place] 1 [facility] ing:LAB Repository 09/01/2017 [id number] Ambulatory [place] [facility] ing:MTLAB Repository 08/26/2017/ [id number] Ambulatory BMSBuilding:B [place] 5 [facility] Repository 08/18/2017 [id number] Ambulatory BMSBuilding:B [place] [facility] Repository 08/18/2017/ [id number] Ambulatory [place] 2 [facility] ing:LAB Repository 07/22/2017/ [id number] Ambulatory [place] 4 [facility] ing:LAB Repository PAYERS PAYERS ENCOUNTER GUARANTOR PAYER SUBSCRIBER SOURCE 06/22/2018 CLAUDIA Torrez Primary CLAUDIA J [place] [id number] Insurance:MEDICARE TEICHMERDOB: [facility] [address] [id number] Number: Repository [address]Znx: 330 [id number] [phone] () Date:2017-07-11 06/22/2018 Secondary CLAUDIA J [place] Insurance:AARPPolicy TEICHMERDOB: [facility] Number: [id number] [facility] [id number] Repository Date:9159-96-64[address], [place] [address]BX: 06/22/2018 Tertiary NOT GIVENUNK [place] Insurance:SELF PAY [facility] Number: Effective Repository Date:2018-06-08 05/20/2018 CLAUDIA J Primary CLAUDIA J [place] [id number] Insurance:MEDICARE TEICHMERDOB: Community YURY [address] PART A [facility] [id number] Number: Repository [id number]: 330 [id number] [phone] () Date:2017-07-11 05/20/2018 Secondary CLAUDIA J [place] Insurance:AARPPolicy TEICHMERDOB: Community Number: [id number] Hospital [id number] Repository Date:1236-93-97KN [facility] [place], [place] [address]LO: 05/20/2018 Tertiary NOT GIVENUNK [place] Insurance:SELF PAY [facility] Number: Effective Repository Date:2018-05-11 04/20/2018 CLAUDIA J Primary CLAUDIA J [place] [id number] Insurance:MEDICARE TEICHMERDOB: Community YURY [address] PART A [facility] [id number] Number: Repository [address]Zmb: 330 [id number] [phone] () Date:2017-07-11 04/20/2018 Secondary CLAUDIA J [place] Insurance:AARPPolicy TEICHMERDOB: Community Number: [id number] Hospital [id number] Repository Date:7142-30-68ZX [address], [place] [address]LO: 04/20/2018 Tertiary NOT GIVENUNK [place] Insurance:SELF PAY [facility] Number: Effective Repository Date:2018-04-09 03/20/2018 CLAUDIA J Primary CLAUDIA J [place] [id number] Insurance:MEDICARE TEICHMERDOB: Community YURY [address] PART A [facility] [id number] Number: Repository [address]Zbs: [phone] [id number] [phone] () Date:2017-07-11 03/20/2018 Secondary CLAUDIA J [place] Insurance:AARPPolicy TEICHMERDOB: Community Number: [id number] Hospital [id number] Repository Date:3115-78-22FP [address], [place] [address]EY: 03/20/2018 Tertiary NOT GIVENUNK [place] Insurance:SELF PAY [facility] Number: Effective Repository Date:2018-03-11 02/26/2018 CLAUDIA J Primary CLAUDIA J [place] [id number] Insurance:MEDICARE TEICHMERDOB: Community YURY [address] PART A [facility] [id number] Number: Repository [address]Jpg: 330 [id number] [phone] (HP) Date:2017-07-11 02/26/2018 Secondary CLAUDIA J [place] Insurance:AARPPolicy TEICHMERDOB: Community Number: [id number] Hospital [id number] Repository Date:6304-10-39IB [address], [place] [address]TM: 02/26/2018 Tertiary NOT GIVENUNK [place] Insurance:SELF PAY [facility] Number: Effective Repository Date:2018-02-10 02/26/2018 CLAUDIA J Primary CLAUDIA J [place] [id number] Insurance:MEDICARE TEICHMERDOB: Community [address] PART A [facility] [id number] Number: Repository [address]Hkz: 330 [id number] [phone] () Date:2017-08-26 02/26/2018 Secondary CLAUDIA J [place] Insurance:AARPPolicy TEICHMERDOB: Community Number: [id number] Hospital [id number] Repository Date:7778-82-69SI [address], [place] [address]ZM: 02/26/2018 Tertiary NOT GIVENUNK [place] Insurance:SELF PAY [facility] Number: Effective Repository Date:2018-02-26 01/29/2018 CLAUDIA J Primary CLAUDIA J [place] [id number] Insurance:MEDICARE TEICHMERDOB: Community [address] PART A [facility] [id number] Number: Repository [address]Txl: 330 [id number] [phone] (HP) Date:2017-07-11 01/29/2018 Secondary CLAUDIA J [place] Insurance:AARPPolicy TEICHMERDOB: Community Number: [id number] Hospital [id number] Repository Date:1963-93-01UQ [address], [place] [address]GS: 01/29/2018 Tertiary NOT GIVENUNK [place] Insurance:SELF PAY [facility] Number: Effective Repository Date:2018-01-08 01/19/2018 CLAUDIA J Primary CLAUDIA J [place] [id number] Insurance:MEDICARE TEICHMERDOB: Community Y[address]Y [address] PART A [facility] [id number] Number: Repository [address]Qak: 330 [id number] [phone] () Date:2017-12-31 01/19/2018 Secondary CLAUDIA J [place] Insurance:AARPPolicy TEICHMERDOB: Community Number: [id number] Hospital [id number] Repository Date:6885-50-54NE [address], [place] [address]FV: 01/19/2018 Tertiary NOT GIVENUNK [place] Insurance:SELF PAY [facility] Hospital Number: Effective Repository Date:2017-12-31 12/30/2017 CLAUDIA J Primary CLAUDIA J [place] [id number] Insurance:MEDICARE TEICHMERDOB: Community Y[address] PART A [facility] [id number], [place] Number: Repository [address]Mdf: 330 [id number] [phone] () Date:2017-07-11 12/30/2017 Secondary CLAUDIA J [place] Insurance:AARPPolicy TEICHMERDOB: Community Number: [id number] Hospital [id number] Repository Date:1402-22-14ZW [address], [place] [address]SH: 12/30/2017 Tertiary NOT GIVENUNK [place] Insurance:SELF PAY [facility] Number: Effective Repository Date:2017-12-05 12/04/2017 CLAUDIA J Primary CLAUDIA J [place] [id number] Insurance:MEDICARE TEICHMERDOB: Community Y[address] PART A [facility] [id number], [place] Number: Repository [address]Vvc: 330 [id number] [phone] () Date:2017-07-11 12/04/2017 Secondary CLAUDIA J [place] Insurance:AARPPolicy TEICHMERDOB: Community Number: [id number] Hospital [id number] Repository Date:6130-35-62IN [facility] [place], [place] [address]OW: 12/04/2017 Tertiary NOT GIVENUNK [place] Insurance:SELF PAY [facility] Number: Effective Repository Date:2017-11-06 10/30/2017 CLAUDIA J Primary CLAUDIA J [place] [id number] Insurance:MEDICARE TEICHMERDOB: Community Y[address] PART A [facility] [id number] Number: Repository [address]Ydp: 330 [id number] [phone] () Date:2017-07-11 10/30/2017 Secondary CLAUDIA J [place] Insurance:AARPPolicy TEICHMERDOB: Community Number: [id number] Hospital [id number] Repository Date:8477-50-72ZT [address], [place] [address]BQ: 10/30/2017 Tertiary NOT GIVENUNK [place] Insurance:SELF PAY [facility] Number: Effective Repository Date:2017-10-07 09/18/2017 CLAUDIA J Primary CLAUDIA J [place] [id number] Insurance:MEDICARE TEICHMERDOB: Community [address] PART A [facility] [id number] Number: Repository [address]Wsp: (134) [id number] [phone] (HP) Date:2017-07-11 09/18/2017 Secondary CLAUDIA J [place] Insurance:AARPPolicy TEICHMERDOB: Community Number: [id number] Hospital [id number] Repository Date:3364-97-79GE [facility] [place], [place] [address]CD: 09/18/2017 Tertiary NOT GIVENUNK [place] Insurance:SELF PAY [facility] Number: Effective Repository Date:2017-09-08 09/01/2017 CLAUDIA J Primary CLAUDIA J [place] [id number] Insurance:MEDICARE TEICHMERDOB: Community [address] PART A [facility] [id number] Number: Repository [address]Lix: 330 [id number] [phone] () Date:2017-09-01 09/01/2017 Secondary CLAUDIA J [place] Insurance:AARPPolicy TEICHMERDOB: Community Number: [id number] Hospital [id number] Repository Date:8327-00-84GX [facility] [place], [place] [address]TP: 09/01/2017 Tertiary NOT GIVENUNK [place] Insurance:SELF PAY [facility] Number: Effective Repository Date:2017-09-01 08/26/2017 CLAUDIA J Primary CLAUDIA J [place] [id number] Insurance:MEDICARE TEICHMERDOB: Community Y[address] PART A [facility] [id number] Number: Repository [address]Trj: 330 [id number] [phone] () Date:2017-07-12 08/26/2017 Secondary CLAUDIA J [place] Insurance:AARPPolicy TEICHMERDOB: Community Number: [id number] Hospital [id number] Repository Date:8157-75-62TF [facility] [place]19141[place], [place] [address]NA: 08/26/2017 Tertiary NOT GIVENUNK [place] Insurance:SELF PAY [facility] Number: Effective Repository Date:2017-07-12 08/18/2017 Claudia J Primary Claudia J [place] [id number] Insurance:MEDICARE TeichmerDOB: Community [address] PART A [id number] [place] Number: Repository [address]Dtr: 330 [id number] [phone] (HP) Date:2017-05-21 08/18/2017 Secondary CLAUDIA J [place] Insurance:AARPPolicy TEICHMERDOB: Community Number: [id number] [facility] [id number] Repository Date:6386-19-45CE [address]UN[place], [place] [address]UN: 08/18/2017 Tertiary NOT GIVENUNK [place] Insurance:SELF PAY [facility] Number: Effective Repository Date:2017-05-21 08/18/2017 Claudia J Primary Claudia J [place] [id number] Insurance:MEDICARE TeichmerDOB: Community [address] PART A [facility] [id number] [place] Number: Repository [address]Bnb: 330 [id number] [phone] () Date:2017-07-11 08/18/2017 Secondary CLAUDIA J [place] Insurance:AARPPolicy TEICHMERDOB: Community Number: [id number] Hospital [id number] Repository Date:3053-52-18FA [address], [place] [address]EV: 08/18/2017 Tertiary NOT GIVENUNK [place] Insurance:SELF PAY [facility] Number: Effective Repository Date:2017-08-08 07/22/2017 Claudia J Primary Claudia J [place] [id number] Insurance:MEDICARE TeichmerDOB: Community [address] PART A [facility] [id number] Number: Repository [address]Cnt: (074) [id number] [phone] (HP) Date:2017-07-11 07/22/2017 Secondary CLAUDIA J [place] Insurance:AARPPolicy TEICHMERDOB: Community Number: [id number] Hospital [id number] Repository Date:6608-11-29ZO [address], [place] [address]EO: 07/22/2017 Tertiary NOT GIVENARCHIE [place] Insurance:SELF PAY [facility] Number: Effective Repository Date:2017-07-11
== END 2018-05-20 09:00 | disposition home or self-care (01) ==
LOC: LAB 08:06
PROVIDERS: Referring Provider Internal Medicine Cardiovascular Disease; Visit Provider Internal Medicine Cardiovascular Disease
DX: I48.91 Unspecified atrial fibrillation (principal); Z79.01 Long term (current) use of anticoagulants
CPT/HCPCS: 36416; 85610

== ENCOUNTER 2018-06-22 13:35 | Outpatient (RCR) | payer MEDICARE, OTHER, SELFPAY ==
[2018-02-26 13:38] VITALS: BMI 39.9
[2018-06-22 14:05] LABS: Prothrombin Time Fingerstick 33.9 SEC (11.9-14.4)
== END 2018-06-22 15:00 | disposition home or self-care (01) ==
LOC: LAB 13:35
PROVIDERS: Referring Provider Internal Medicine Cardiovascular Disease; Visit Provider Internal Medicine Cardiovascular Disease
DX: I48.91 Unspecified atrial fibrillation (principal); Z79.01 Long term (current) use of anticoagulants
CPT/HCPCS: 36416; 85610

== ENCOUNTER → 2018-07-24 16:03 | Outpatient (CLI) | payer MEDICARE, OTHER, SELFPAY ==
[2018-07-22 15:06] VITALS: BMI 38.0
--- NOTE | 2018-07-24 | COLBX_PTH ---
PATIENT: CHERI OCASIO LOC: BUD U#:[id number] AGE/SX: 84/F ROOM: RE07/24/[address]: Dr. Hossein Styles MD : 1940 BED: DIS: SPEC #: [id number] RECD: 07/24/18 15:29 STATUS: KATEY DIOGENES #: [id number] NIKOLAS: 07/24/18 00:[address]: Hossein Styles DEPT: SURGICAL PATHOLOGY RECD BY: Chivo Lewis ENTERED: 07/27/18 08:04 SP TYPE: COLON BX OTHR DR: Olu Gregorio [facility] Tissues: Sigmoid colon biopsy Procedures: Surgery Specimen Level IV HEADER OPERATION: Colonoscopy with biopsies PRE-OP DIAGNOSIS: Positive Cologuard TISSUE SUBMITTED: Sigmoid / rectum polyp biopsy, rule out adenoma MICROSCOPIC DIAGNOSIS Sigmoid/rectum polyp, biopsy: Fragments of hyperplastic polyp. SJ:afshin 07/28/18 MICROSCOPIC DESCRIPTION Slides are reviewed. GROSS DESCRIPTION Received in fixative is one container labeled with the patient's name and designated sigmoid/rectum polyp. The specimen consists of multiple irregular fragments of light yañez soft tissue that in aggregate measure 1.5 x 0.5 x 0.3 cm. The specimen is totally submitted in one cassette. / SJ:rg 07/27/18 TC:5 CPT: 32935
== END ==
PROVIDERS: Referring Provider Internal Medicine Gastroenterology; Visit Provider Internal Medicine Gastroenterology
DX: K63.5 Polyp of colon (principal)
CPT/HCPCS: 88305

== ENCOUNTER → 2018-08-04 13:33 | Outpatient (CLI) | payer MEDICARE, OTHER, SELFPAY ==
[2018-07-22 15:06] VITALS: BMI 38.0
--- NOTE | 2018-08-04 13:37 | ECHOCS_ITS ---
Reason For Study: Dyspnea/SOB Procedure This was a 2D Doppler, Color Flow transthoracic echocardiogram. The study was technically difficult. Contrast injection was performed. Exam performed in department. Left Ventricle Normal LV size. Left ventricular systolic function is normal. The estimated ejection fraction is 65 %. Unable to assess diastolic dysfunction. No regional wall motion abnormalities noted. Right Ventricle Normal RV size. Normal systolic function. Atria The left atrium is moderately enlarged. The right atrium is moderately enlarged. No doppler evidence for ASD. Mitral Valve There is mild mitral annular calcification. Normal mitral valve. Trivial mitral valve insufficiency. Tricuspid Valve Normal tricuspid valve. Mild tricuspid valve insufficiency. Right ventricular systolic pressure estimated to be 30 mmHg. Aortic Valve Trisinus/trileaflet aortic valve. Normal aortic valve. Pulmonic Valve The pulmonic valve is not well visualized. Trivial pulmonic valve insufficiency. Great Vessels Normal aortic root. Calcified aortic root. Pericardium/Pleural No pericardial effusion. Medication 22 gauge I.V. with prn adaptor inserted into left arm. Diluted definity 4ml given slow IV push to enhance endocardial definition. MMode/2D Measurements & Calculations LVIDd: 3.8 cm IVSd: 1.3 cm Ao root diam: 3.8 cm LVIDs: 2.5 cm LVPWd: 1.2 cm LA dimension: 4.8 cm FS: 32.3 % LAV(MOD-sp4): 100.9 ml LA A4 area: 30.0 cm2 RA A4 area: 24.8 cm2 Doppler Measurements & Calculations MV E max jennifer: 115.8 cm/sec Ao V2 max: 103.4 cm/sec LV V1 max: 86.7 cm/sec Ao max P.3 mmHg LV V1 max P.0 mmHg PA V2 max: 87.6 cm/sec TR max jennifer: 261.5 cm/sec TR max P.4 mmHg Interpretation Summary The study was technically difficult. Contrast injection was performed. Left ventricular systolic function is normal. The estimated ejection fraction is 65 %. The left atrium is moderately enlarged. The right atrium is moderately enlarged. There is mild mitral annular calcification. Trivial mitral valve insufficiency. Mild tricuspid valve insufficiency. Trivial pulmonic valve insufficiency. Calcified aortic root. Right ventricular systolic pressure estimated to be 30 mmHg. Unable to assess diastolic dysfunction. Ordering Physician: Izaiah Pritchett Referring Physician: Izaiah Pritchett Performed By: Devin Reese RCS
== END ==
PROVIDERS: Referring Provider Nurse Practitioner Family; Visit Provider Nurse Practitioner Family
DX: R06.02 Shortness of breath (principal); I48.91 Unspecified atrial fibrillation; R60.9 Edema, unspecified
CPT/HCPCS: 93306; Q9957; A4216; C8929

== ENCOUNTER 2018-08-07 08:47 | Outpatient (RCR) | payer MEDICARE, OTHER, SELFPAY ==
[2018-02-26 13:38] VITALS: BMI 39.9
[2018-07-22 15:06] VITALS: BMI 38.0
[2018-08-07 09:00] LABS: Prothrombin Time Fingerstick 29.7 SEC (11.9-14.4)
== END 2018-08-07 09:47 | disposition home or self-care (01) ==
LOC: LAB 08:47
PROVIDERS: Referring Provider Internal Medicine Cardiovascular Disease; Visit Provider Internal Medicine Cardiovascular Disease
DX: I48.91 Unspecified atrial fibrillation (principal); Z79.01 Long term (current) use of anticoagulants
CPT/HCPCS: 36416; 85610

== ENCOUNTER 2018-09-07 10:47 | Outpatient (RCR) | payer MEDICARE, OTHER, SELFPAY ==
[2018-07-22 15:06] VITALS: BMI 38.0
[2018-09-07 11:31] LABS: Prothrombin Time Fingerstick 33.4 SEC (11.9-14.4)
== END 2018-10-06 16:00 | disposition home or self-care (01) ==
LOC: LAB 10:47
PROVIDERS: Referring Provider Internal Medicine Cardiovascular Disease; Visit Provider Internal Medicine Cardiovascular Disease
DX: I48.91 Unspecified atrial fibrillation (principal); Z79.01 Long term (current) use of anticoagulants
CPT/HCPCS: 36416; 85610

== ENCOUNTER 2018-10-08 10:16 | Outpatient (RCR) | payer MEDICARE, OTHER, SELFPAY ==
[2018-10-07 12:40] VITALS: BMI 38.0
[2018-10-08 10:30] LABS: Prothrombin Time Fingerstick 32.6 SEC (11.9-14.4)
== END 2018-10-08 11:16 | disposition home or self-care (01) ==
LOC: LAB 10:16
PROVIDERS: Referring Provider Internal Medicine Cardiovascular Disease; Visit Provider Internal Medicine Cardiovascular Disease
DX: I48.91 Unspecified atrial fibrillation (principal); Z79.01 Long term (current) use of anticoagulants
CPT/HCPCS: 36416; 85610

== ENCOUNTER 2018-11-13 10:21 | Outpatient (RCR) | payer MEDICARE, OTHER, SELFPAY ==
[2018-10-07 12:40] VITALS: BMI 38.0
== END 2018-12-06 12:00 | disposition home or self-care (01) ==
LOC: LAB 10:21
PROVIDERS: Referring Provider Internal Medicine Cardiovascular Disease; Visit Provider Internal Medicine Cardiovascular Disease
DX: I48.91 Unspecified atrial fibrillation (principal); Z79.01 Long term (current) use of anticoagulants
CPT/HCPCS: 36416; 85610

== ENCOUNTER 2018-12-14 10:44 | Outpatient (RCR) | payer MEDICARE, OTHER, SELFPAY ==
[2018-12-07 09:26] VITALS: BMI 38.4
[2018-12-14 10:55] LABS: Prothrombin Time Fingerstick 23.8 SEC (11.9-14.4)
== END 2019-01-06 16:32 | disposition home or self-care (01) ==
LOC: LAB 10:44
PROVIDERS: Referring Provider Internal Medicine Cardiovascular Disease; Visit Provider Internal Medicine Cardiovascular Disease
DX: I48.91 Unspecified atrial fibrillation (principal); Z79.01 Long term (current) use of anticoagulants
CPT/HCPCS: 36416; 85610

== ENCOUNTER 2019-01-14 13:44 | Outpatient (RCR) | payer MEDICARE, OTHER, SELFPAY ==
[2018-12-07 09:26] VITALS: BMI 38.4
[2019-01-14 16:21] LABS: Prothrombin Time Fingerstick 33.3 SEC (11.9-14.4)
== END 2019-01-14 14:44 | disposition home or self-care (01) ==
LOC: LAB 13:44
PROVIDERS: Referring Provider Internal Medicine Cardiovascular Disease; Visit Provider Internal Medicine Cardiovascular Disease
DX: I48.91 Unspecified atrial fibrillation (principal); Z79.01 Long term (current) use of anticoagulants
CPT/HCPCS: 36416; 85610

== ENCOUNTER 2019-02-17 13:20 | Outpatient (RCR) | payer MEDICARE, OTHER, SELFPAY ==
[2018-12-07 09:26] VITALS: BMI 38.4
[2019-02-17 16:51] LABS: Prothrombin Time Fingerstick 30.8 SEC (11.9-14.4)
== END 2019-03-08 18:00 | disposition home or self-care (01) ==
LOC: LAB 13:20
PROVIDERS: Referring Provider Internal Medicine Cardiovascular Disease; Visit Provider Internal Medicine Cardiovascular Disease
DX: I48.2 Chronic atrial fibrillation (principal); Z79.01 Long term (current) use of anticoagulants
CPT/HCPCS: 36416; 85610

== ENCOUNTER → 2019-03-22 14:32 | Outpatient (CLI) | payer MEDICARE, OTHER, SELFPAY ==
[2019-03-22 13:50] VITALS: BMI 39.0
--- NOTE | 2019-03-22 14:35 | RAD_ITS ---
STUDY: X-RAY CHEST REASON FOR EXAM: Female, 78 years old. Right-sided chest pain TECHNIQUE: PA and lateral views of the chest. COMPARISON: March 07, 2015 chest x-ray FINDINGS: There are fibrotic changes in the right lung base. Findings are similar to the prior study. There is no demonstrated pleural abnormality. Normal size heart. Normal mediastinum and ro. Normal visualized pulmonary arteries. There is atherosclerotic calcification of the aortic arch with tortuosity. There are diffuse degenerative changes of the visualized thoracic spine. There is mild dextroscoliosis. Normal visualized ribs, clavicles, and shoulders. There is no demonstrated abnormality of the visualized soft tissue structures of the upper abdomen. RAD/Chest PA and Lateral IMPRESSION: Stable chest, no evidence of acute focal infiltrate. Electronically Signed: Nury Green MD at 17:59 EDT Tel , Service support ,
== END ==
PROVIDERS: Referring Provider Nurse Practitioner Family; Visit Provider Nurse Practitioner Family
DX: R07.89 Other chest pain (principal)
CPT/HCPCS: 71046

== ENCOUNTER 2019-04-02 14:16 | Outpatient (RCR) | payer MEDICARE, OTHER, SELFPAY ==
[2018-12-07 09:26] VITALS: BMI 38.4
[2019-03-19 22:38] LABS: Prothrombin Time Fingerstick 35.9 SEC (11.9-14.4)
[2019-04-02 15:19] LABS: Prothrombin Time (Protime)PT. 38.2 SECONDS (11.7-14.9)
[2019-04-02 15:56] LABS: International Normalized Ratio 3.9
[2019-04-02 17:08] LABS: Prothrombin Time Fingerstick 39.8 SEC (11.9-14.4)
== END 2019-04-02 18:00 | disposition home or self-care (01) ==
LOC: LAB 14:16
PROVIDERS: Referring Provider Internal Medicine Cardiovascular Disease; Visit Provider Internal Medicine Cardiovascular Disease
DX: I48.20 Chronic atrial fibrillation, unspecified (principal); Z79.01 Long term (current) use of anticoagulants
CPT/HCPCS: 36415; 36416; 85610

== ENCOUNTER 2019-04-26 08:08 | Outpatient (RCR) | payer MEDICARE, OTHER, SELFPAY ==
[2019-03-22 13:50] VITALS: BMI 39.0
[2019-04-10 10:41] LABS: Prothrombin Time Fingerstick 33.2 SEC (11.9-14.4)
[2019-04-27 07:36] LABS: Prothrombin Time Fingerstick 31.2 SEC (11.9-14.4)
== END 2019-04-26 18:00 | disposition home or self-care (01) ==
LOC: LAB 08:08
PROVIDERS: Referring Provider Internal Medicine Cardiovascular Disease; Visit Provider Internal Medicine Cardiovascular Disease
DX: I48.20 Chronic atrial fibrillation, unspecified (principal); Z79.01 Long term (current) use of anticoagulants
CPT/HCPCS: 36416; 85610

== ENCOUNTER → 2019-05-04 08:39 | Outpatient (CLI) | payer MEDICARE, OTHER, SELFPAY ==
[2019-03-22 13:50] VITALS: BMI 39.0
[2019-05-04 09:31] LABS: Absolute Neutrophil Count 2.8 X10^3/uL (2.0-7.7); Basophil# 0.06 X10^3/uL; Basophil% 1.4 % (0-1); Eosinophil# 0.15 X10^3/uL; Eosinophils% 3.5 % (0-5); Hematocrit 43.2 % (37-47); Hemoglobin 13.9 g/dL (12.0-15.0); Lymphocyte % 20.7 % (19-41); Mean Corp Hgb Conc 32.2 g/dL (32-36); Mean Corpuscular Hgb 28.3 pg (27.0-32.0); Monocyte# 0.39 X10^3/uL; NRBC Flagged by Analyzer 0 % (0-5); Neutrophil # 2.82 X10^3/uL (2.7-7.7); Neutrophil % 64.9 % (47-70); Platelet Count 183 K/mm3 (150-450); RBC Distribution Width CV 14.1 % (11.6-14.6); RBC Distribution Width SD 45.1 fl (35.1-43.9); Red Blood Count 4.91 M/mm3 (4.2-5.4); White Blood Count 4.3 K/mm3 (4.4-11.0)
[2019-05-04 09:44] LABS: Color, Urine Yellow (Yellow); Glucose, Dipstick Normal (Normal); Ketone-Dipstick Negative (Negative); Leukocyte Esterase-Dipstick Negative /ul (Negative); Nitrite-Dipstick Negative (Negative); Occult Blood-Urine Negative /ul (Negative); Protein-Dipstick Negative (Negative); Specific Gravity, Urine 1.015 (1.002-1.030); Urine Bilirubin Dipstick Negative (Negative); Urine Clarity Clear (Clear); Urine Urobilinogen Normal (Normal); Urine pH 6.5 (5.0 - 8.0)
[2019-05-04 09:54] LABS: ALB/GLOB Ratio 0.9 RATIO (0.9-2.4); AST(SGOT) 19 U/L (15-37); Alanine Aminotransfer ALT/SGPT 20 U/L (13-56); Albumin, Serum 3.3 g/dL (3.2-5.0); Alkaline Phosphatase 58 U/L (45-117); Anion Gap 5 (5-15); BUN 24 mg/dL (7-18); BUN/Creat Ratio 22.9 RATIO (10-20); Calcium,Total 9.4 mg/dL (8.5-10.1); Chloride 108 mmol/L (98-107); Cholesterol 160 mg/dL (200); Creatinine, Serum 1.05 mg/dL (0.55-1.02); EST Glomerular Filtration Rate 54 mL/min (>60); Est Glom Filt Rate - Afr Amer 65 mL/min (>60); Globulin 3.5 g/dL (2.2-4.2); Glucose 95 mg/dL (74-106); High Density Lipoprotein 74 mg/dL; Potassium 3.8 mmol/L (3.5-5.1); Protein, Total 6.8 g/dL (6.4-8.2); Sodium Level 143 mmol/L (136-145); Triglycerides 89 mg/dL; Very Low Density Lipoprotein 18 mg/dL (5-40)
== END ==
PROVIDERS: Referring Provider Family Medicine; Visit Provider Family Medicine
DX: Z00.00 Encounter for general adult medical examination without abnormal findings (principal); I48.91 Unspecified atrial fibrillation; E78.5 Hyperlipidemia, unspecified; I10 Essential (primary) hypertension
CPT/HCPCS: 36415; 80053; 80061; 81002; 85025

== ENCOUNTER 2019-05-18 09:00 | Outpatient (RCR) | payer MEDICARE, OTHER, SELFPAY ==
[2019-03-22 13:50] VITALS: BMI 39.0
[2019-05-18 15:29] LABS: Prothrombin Time Fingerstick 27.9 SEC (11.9-14.4)
== END 2019-05-18 18:00 | disposition home or self-care (01) ==
LOC: LAB 09:00
PROVIDERS: Referring Provider Internal Medicine Cardiovascular Disease; Visit Provider Internal Medicine Cardiovascular Disease
DX: I48.20 Chronic atrial fibrillation, unspecified (principal); Z79.01 Long term (current) use of anticoagulants
CPT/HCPCS: 36416; 85610

== ENCOUNTER 2019-06-14 10:07 | Outpatient (RCR) | payer MEDICARE, OTHER, SELFPAY ==
[2019-03-22 13:50] VITALS: BMI 39.0
[2019-06-14 11:11] LABS: Prothrombin Time Fingerstick 26.4 SEC (11.9-14.4)
== END 2019-06-14 18:00 | disposition home or self-care (01) ==
LOC: LAB 10:07
PROVIDERS: Referring Provider Internal Medicine Cardiovascular Disease; Visit Provider Internal Medicine Cardiovascular Disease
DX: I48.20 Chronic atrial fibrillation, unspecified (principal); Z79.01 Long term (current) use of anticoagulants
CPT/HCPCS: 36416; 85610

== ENCOUNTER 2019-07-13 10:48 | Outpatient (RCR) | payer MEDICARE, OTHER, SELFPAY ==
[2019-03-22 13:50] VITALS: BMI 39.0
[2019-07-13 16:54] LABS: Prothrombin Time Fingerstick 26.3 SEC (11.9-14.4)
[2019-07-14 16:35] LABS: Prothrombin Time Fingerstick 26.3 SEC (11.9-14.4)
== END 2019-07-13 18:00 | disposition home or self-care (01) ==
LOC: LAB 10:48
PROVIDERS: Referring Provider Internal Medicine Cardiovascular Disease; Visit Provider Internal Medicine Cardiovascular Disease
DX: I48.20 Chronic atrial fibrillation, unspecified (principal); Z79.01 Long term (current) use of anticoagulants
CPT/HCPCS: 36416; 85610

== ENCOUNTER 2019-08-10 10:24 | Outpatient (RCR) | payer MEDICARE, OTHER, SELFPAY ==
[2019-07-28 10:42] VITALS: BMI 39.4
[2019-08-10 10:36] LABS: Prothrombin Time Fingerstick 28.6 SEC (11.9-14.4)
== END 2019-08-10 18:00 | disposition home or self-care (01) ==
LOC: LAB 10:24
PROVIDERS: Referring Provider Internal Medicine Cardiovascular Disease; Visit Provider Internal Medicine Cardiovascular Disease
DX: I48.20 Chronic atrial fibrillation, unspecified (principal); Z79.01 Long term (current) use of anticoagulants
CPT/HCPCS: 36416; 85610

== ENCOUNTER 2019-09-28 10:01 | Outpatient (RCR) | payer MEDICARE, OTHER, SELFPAY ==
[2019-07-28 10:42] VITALS: BMI 39.4
[2019-09-14 10:06] LABS: Prothrombin Time Fingerstick 20.9 SEC (11.9-14.4)
[2019-09-28 10:11] LABS: Prothrombin Time Fingerstick 29.6 SEC (11.9-14.4)
== END 2019-10-07 18:00 | disposition home or self-care (01) ==
LOC: LAB 10:01
PROVIDERS: Referring Provider Internal Medicine Cardiovascular Disease; Visit Provider Internal Medicine Cardiovascular Disease
DX: I48.20 Chronic atrial fibrillation, unspecified (principal); Z79.01 Long term (current) use of anticoagulants
CPT/HCPCS: 36416; 85610

== ENCOUNTER 2019-11-02 09:18 | Outpatient (RCR) | payer MEDICARE, OTHER, SELFPAY ==
[2019-07-28 10:42] VITALS: BMI 39.4
[2019-11-02 09:31] LABS: Prothrombin Time Fingerstick 24.5 SEC (11.9-14.4)
== END 2019-11-02 18:00 | disposition home or self-care (01) ==
LOC: LAB 09:18
PROVIDERS: Referring Provider Internal Medicine Cardiovascular Disease; Visit Provider Internal Medicine Cardiovascular Disease
DX: I48.20 Chronic atrial fibrillation, unspecified (principal); Z79.01 Long term (current) use of anticoagulants
CPT/HCPCS: 36416; 85610

== ENCOUNTER 2019-12-06 13:11 | Outpatient (RCR) | payer MEDICARE, OTHER, SELFPAY ==
[2019-07-28 10:42] VITALS: BMI 39.4
[2019-11-22 15:01] VITALS: BMI 39.5
[2019-12-06 14:16] LABS: Prothrombin Time Fingerstick 32.3 SEC (11.9-14.4)
== END 2019-12-06 18:00 | disposition home or self-care (01) ==
LOC: LAB 13:11
PROVIDERS: Referring Provider Internal Medicine Cardiovascular Disease; Visit Provider Internal Medicine Cardiovascular Disease
DX: I48.20 Chronic atrial fibrillation, unspecified (principal); Z79.01 Long term (current) use of anticoagulants
CPT/HCPCS: 36416; 85610

== ENCOUNTER 2020-01-04 10:50 | Outpatient (RCR) | payer MEDICARE, OTHER, SELFPAY ==
[2019-11-22 15:01] VITALS: BMI 39.5
[2020-01-04 11:01] LABS: Prothrombin Time Fingerstick 27.4 SEC (11.9-14.4)
== END 2020-01-04 18:00 | disposition home or self-care (01) ==
LOC: LAB 10:50
PROVIDERS: Referring Provider Internal Medicine Cardiovascular Disease; Visit Provider Internal Medicine Cardiovascular Disease
DX: I48.20 Chronic atrial fibrillation, unspecified (principal); Z79.01 Long term (current) use of anticoagulants
CPT/HCPCS: 36416; 85610

== ENCOUNTER 2020-02-07 10:56 | Outpatient (RCR) | payer MEDICARE, OTHER, SELFPAY ==
[2019-11-22 15:01] VITALS: BMI 39.5
[2020-02-07 09:50] VITALS: BMI 39.5
[2020-02-07 11:05] LABS: Prothrombin Time Fingerstick 31.2 SEC (11.9-14.4)
== END 2020-02-07 18:00 | disposition home or self-care (01) ==
LOC: LAB 10:56
PROVIDERS: Referring Provider Internal Medicine Cardiovascular Disease; Visit Provider Internal Medicine Cardiovascular Disease
DX: I48.20 Chronic atrial fibrillation, unspecified (principal); Z79.01 Long term (current) use of anticoagulants
CPT/HCPCS: 36416; 85610

== ENCOUNTER 2020-02-28 14:06 | Outpatient (RCR) | payer MEDICARE, OTHER, SELFPAY ==
[2020-03-14 13:15] LABS: Prothrombin Time Fingerstick 27.7 SEC (11.9-14.4)
== END 2020-02-28 18:00 | disposition home or self-care (01) ==
LOC: LAB 14:06
PROVIDERS: PCP Internal Medicine; Referring Provider Internal Medicine Cardiovascular Disease; Visit Provider Internal Medicine Cardiovascular Disease
DX: I48.20 Chronic atrial fibrillation, unspecified (principal); Z79.01 Long term (current) use of anticoagulants
CPT/HCPCS: 36416; 85610

== ENCOUNTER 2020-03-29 10:01 | Outpatient (RCR) | payer MEDICARE, OTHER, SELFPAY ==
[2020-03-29 10:16] LABS: Prothrombin Time Fingerstick 28.1 SEC (11.9-14.4)
== END 2020-03-29 18:00 | disposition home or self-care (01) ==
LOC: LAB 10:01
PROVIDERS: PCP Internal Medicine; Referring Provider Internal Medicine Cardiovascular Disease; Visit Provider Internal Medicine Cardiovascular Disease
DX: I48.20 Chronic atrial fibrillation, unspecified (principal); Z79.01 Long term (current) use of anticoagulants
CPT/HCPCS: 36416; 85610

== ENCOUNTER 2020-04-27 10:26 | Outpatient (RCR) | payer MEDICARE, OTHER, SELFPAY ==
[2020-04-27 10:40] LABS: Prothrombin Time Fingerstick 30.4 SEC (11.9-14.4)
== END 2020-04-27 18:00 | disposition home or self-care (01) ==
LOC: LAB 10:26
PROVIDERS: PCP Internal Medicine; Referring Provider Internal Medicine Cardiovascular Disease; Visit Provider Internal Medicine Cardiovascular Disease
DX: I48.20 Chronic atrial fibrillation, unspecified (principal); Z79.01 Long term (current) use of anticoagulants
CPT/HCPCS: 36416; 85610

== ENCOUNTER 2020-05-29 15:36 | Outpatient (RCR) | payer MEDICARE, OTHER, SELFPAY ==
[2020-05-29 14:50] VITALS: BMI 38.7
[2020-05-29 16:59] LABS: International Normalized Ratio 3.1; Prothrombin Time (Protime)PT. 31.5 SECONDS (11.7-14.9)
[2020-05-29 17:15] LABS: AST(SGOT) 24 U/L (15-37); Alanine Aminotransfer ALT/SGPT 28 U/L (13-56); Albumin, Serum 3.3 g/dL (3.2-5.0); Alkaline Phosphatase 64 U/L (45-117); Bilirubin, Direct 0.15 mg/dL (0.00-0.30); Cholesterol 152 mg/dL (200); Globulin 3.8 g/dL (2.2-4.2); High Density Lipoprotein 69 mg/dL; Protein, Total 7.1 g/dL (6.4-8.2); Triglycerides 75 mg/dL; Very Low Density Lipoprotein 15 mg/dL (5-40)
== END 2020-05-29 18:00 | disposition home or self-care (01) ==
LOC: LAB 15:36
PROVIDERS: Physician Assistant Medical; PCP Internal Medicine; Referring Provider Internal Medicine Cardiovascular Disease; Visit Provider Internal Medicine Cardiovascular Disease
DX: I48.20 Chronic atrial fibrillation, unspecified (principal); Z79.01 Long term (current) use of anticoagulants; E78.2 Mixed hyperlipidemia
CPT/HCPCS: 36415; 80061; 80076; 85610

== ENCOUNTER → 2020-06-08 12:42 | Outpatient (CLI) | payer MEDICARE, OTHER, SELFPAY ==
[2020-05-29 14:50] VITALS: BMI 38.7
--- NOTE | 2020-06-08 12:45 | BI_ITS ---
MAMMOGRAPHY - BILATERAL SCREENING REASON FOR EXAM: Female, 79 years old. Routine annual screening examination. PERTINENT HISTORY: Non-contributory. Remote right stereotactic breast biopsies. TECHNIQUE: Digital bilateral breast lefty (3D mammographic acquisition) in the CC and MLO projections. 2-D mediolateral oblique (MLO) and craniocaudad (CC) views of both breasts were obtained. CAD: Full Field Digital Mammography with Computer Added Detection was performed. COMPARISON: Comparison is made with prior study dated 01/19/2018 and 11/07/2014. FINDINGS: Breast Composition: There are scattered areas of fibroglandular density. There are no dominant masses or suspicious calcifications. Once again, 2 tissue markers are seen in the central medial portion of the right breast. No other significant abnormalities are identified. There has been no significant change since the prior study. BI/SCREEN MAMM (CAD) W/LEFTY BILAT IMPRESSION: Stable bilateral screening mammogram. Yearly follow-up mammogram recommended. (A) ASSESSMENT CATEGORY: BIRADS Category 2: Benign. A letter regarding these results will be sent to the patient by the facility within 30 days. Approximately 10% of breast cancers are not detected by mammography. A normal mammogram should not delay biopsy of a clinically suspicious abnormality. [id number] Electronically Signed: Matheus Abarca, at 11:16 EST , Service support ,
== END ==
PROVIDERS: PCP Internal Medicine; Referring Provider Obstetrics & Gynecology; Visit Provider Obstetrics & Gynecology
DX: Z12.31 Encounter for screening mammogram for malignant neoplasm of breast (principal)
CPT/HCPCS: 77063; 77067

== ENCOUNTER → 2020-06-13 11:15 | Outpatient (CLI) | payer MEDICARE, OTHER, SELFPAY ==
[2020-05-29 14:50] VITALS: BMI 38.7
--- NOTE | 2020-06-13 15:38 | STRESSREP_ITS ---
Stress Test Report Date: 06-13-2020 Procedure: Pharmacologic stress nuclear imaging study Indications: Chest pain; atrial fibrillation; hyperlipidemia; hypertension Consent: Per the patient Procedure: The patient underwent pharmacologic (Regadenoson) evaluation with a peak heart rate of 131 beats per minute (91%predicted maximal heart rate) and a peak blood pressure of 142/88 mmHg. The baseline ECG demonstrated atrial fibrillation; nonspecific ST/T wave abnormality. The peak pharmacologic ECG demonstrated continued atrial fibrillation with nonspecific ST/T wave abnormality. There were no cardiac dysrhythmias pretest, during pharmacologic infusion, or recovery. There was no complaint of chest discomfort during pharmacologic infusion or recovery. The examination was discontinued secondary to completion of protocol. Impression: 1. Pharmacologic (Regadenoson) evaluation 2. Peak pharmacologic ECG with continued atrial fibrillation with nonspecific ST/T wave abnormality. 3. There were no cardiac dysrhythmias pretest, during pharmacologic infusion, or recovery. 4. Nuclear images pending Myocardial perfusion imaging study: Technique: The patient was injected with 14.5 millicuries of technetium 99m Cardiolite and subsequently rest SPECT Cardiolite nuclear imaging was obtained in the horizontal long, vertical long, and short axis views. The patient underwent pharmacologic (Regadenoson) evaluation with a peak heart rate of 131 beats per minute (91% percent predicted maximal heart rate) and a peak blood pressure of 142/88 mmHg. The patient was injected with 44.7 millicuries of technetium 99m Cardiolite and subsequently stress SPECT Cardiolite nuclear imaging was obtained in the horizontal long, vertical long, and short axis views. A gated Cardiolite study at peak stress was obtained. Interpretation: Rest and stress SPECT Cardiolite nuclear imaging status post realignment, normalization, and attenuation correction demonstrate relative uniform tracer uptake and myocardial perfusion appearing within normal limits. There is end systolic thickening and brightening. The gated Cardiolite study demonstrates myocardial thickening and inward wall motion. The reported LVEF is 81%. Impression: 1. Rest and stress SPECT Cardiolite nuclear imaging demonstrate relative uniform tracer uptake and myocardial perfusion appearing within normal limits. 2. The gated Cardiolite study reports an LVEF of 81%. This note was generated with [employer] software. It may contain incorrect words, spelling, and punctuation that were not noted in checking the note before signing.
== END ==
PROVIDERS: PCP Internal Medicine; Referring Provider Physician Assistant Medical; Visit Provider Physician Assistant Medical
DX: R07.9 Chest pain, unspecified (principal)
CPT/HCPCS: 78452; 93017; A9500; A4216; J2785

== ENCOUNTER 2020-07-04 13:15 | Outpatient (RCR) | payer MEDICARE, OTHER, SELFPAY ==
[2020-07-04 13:25] LABS: Prothrombin Time Fingerstick 32.9 SEC (11.9-14.4)
== END 2020-07-04 18:00 | disposition home or self-care (01) ==
LOC: LAB 13:15
PROVIDERS: PCP Internal Medicine; Referring Provider Internal Medicine Cardiovascular Disease; Visit Provider Internal Medicine Cardiovascular Disease
DX: I48.20 Chronic atrial fibrillation, unspecified (principal); Z79.01 Long term (current) use of anticoagulants
CPT/HCPCS: 36416; 85610

== ENCOUNTER 2020-07-26 13:40 | Outpatient (RCR) | payer MEDICARE, OTHER, SELFPAY | END 2020-07-26 18:00 | disposition home or self-care (01) | LOC: LAB 13:40 | PROVIDERS: PCP Internal Medicine; Referring Provider Internal Medicine Cardiovascular Disease; Visit Provider Internal Medicine Cardiovascular Disease | DX: I48.20 Chronic atrial fibrillation, unspecified (principal); Z79.01 Long term (current) use of anticoagulants | CPT/HCPCS: 36416; 85610 ==

== ENCOUNTER 2020-08-15 15:48 | Outpatient (RCR) | payer MEDICARE, OTHER, SELFPAY ==
[2020-08-15] MEDS: COVID-19 VACC, MRNA(PFIZER)/PF 30 MCG/0.3 ML SYRINGE IM (18:28)
[2020-09-05] MEDS: COVID-19 VACC, MRNA(PFIZER)/PF 30 MCG/0.3 ML SYRINGE IM (17:56)
== END 2020-11-14 23:59 ==
LOC: IMMUN 15:48
PROVIDERS: PCP Internal Medicine; Visit Provider Family Medicine
DX: Z23 Encounter for immunization (principal)
CPT/HCPCS: 0001A; 0002A; 91300

== ENCOUNTER 2020-09-06 12:55 | Outpatient (RCR) | payer MEDICARE, OTHER, SELFPAY ==
[2020-08-23 14:15] LABS: INR Fingerstick 3.3; Prothrombin Time Fingerstick 36.5 SEC (11.9-14.4)
[2020-09-06 13:47] LABS: International Normalized Ratio 1.9; Prothrombin Time (Protime)PT. 21.3 SECONDS (11.7-14.9)
== END 2020-09-06 18:00 | disposition home or self-care (01) ==
LOC: LAB 12:55
PROVIDERS: PCP Internal Medicine; Referring Provider Internal Medicine Cardiovascular Disease; Visit Provider Internal Medicine Cardiovascular Disease
DX: I48.20 Chronic atrial fibrillation, unspecified (principal); Z79.01 Long term (current) use of anticoagulants
CPT/HCPCS: 36415; 36416; 85610

== ENCOUNTER 2020-10-06 10:41 | Outpatient (RCR) | payer MEDICARE, OTHER, SELFPAY ==
[2020-09-20 11:10] LABS: INR Fingerstick 2.1; Prothrombin Time Fingerstick 23.9 SEC (11.9-14.4)
[2020-10-06 10:55] LABS: INR Fingerstick 2.1; Prothrombin Time Fingerstick 24.3 SEC (11.9-14.4)
== END 2020-10-06 18:00 | disposition home or self-care (01) ==
LOC: LAB 10:41
PROVIDERS: PCP Internal Medicine; Referring Provider Internal Medicine Cardiovascular Disease; Visit Provider Internal Medicine Cardiovascular Disease
DX: I48.20 Chronic atrial fibrillation, unspecified (principal); Z79.01 Long term (current) use of anticoagulants
CPT/HCPCS: 36416; 85610

== ENCOUNTER 2020-11-02 09:42 | Outpatient (RCR) | payer MEDICARE, OTHER, SELFPAY ==
[2020-11-02 09:51] LABS: INR Fingerstick 1.9; Prothrombin Time Fingerstick 21.9 SEC (11.9-14.4)
== END 2020-11-02 18:00 | disposition home or self-care (01) ==
LOC: LAB 09:42
PROVIDERS: PCP Internal Medicine; Referring Provider Internal Medicine Cardiovascular Disease; Visit Provider Internal Medicine Cardiovascular Disease
DX: I48.20 Chronic atrial fibrillation, unspecified (principal); Z79.01 Long term (current) use of anticoagulants
CPT/HCPCS: 36416; 85610

== ENCOUNTER 2020-11-23 10:13 | Outpatient (RCR) | payer MEDICARE, OTHER, SELFPAY ==
[2020-11-23 10:37] LABS: International Normalized Ratio 1.8; Prothrombin Time (Protime)PT. 20.1 SECONDS (11.7-14.9)
[2020-11-23 11:04] LABS: AST(SGOT) 22 U/L (15-37); Alanine Aminotransfer ALT/SGPT 26 U/L (13-56); Albumin, Serum 3.2 g/dL (3.2-5.0); Alkaline Phosphatase 65 U/L (45-117); Cholesterol 158 mg/dL (200); Globulin 3.5 g/dL (2.2-4.2); High Density Lipoprotein 70 mg/dL; Protein, Total 6.7 g/dL (6.4-8.2); Triglycerides 90 mg/dL; Very Low Density Lipoprotein 18 mg/dL (5-40)
== END 2020-11-23 18:00 | disposition home or self-care (01) ==
LOC: LAB 10:13
PROVIDERS: PCP Internal Medicine; Referring Provider Internal Medicine Cardiovascular Disease; Visit Provider Internal Medicine Cardiovascular Disease
DX: I48.20 Chronic atrial fibrillation, unspecified (principal); Z79.01 Long term (current) use of anticoagulants; E78.00 Pure hypercholesterolemia, unspecified; E78.2 Mixed hyperlipidemia
CPT/HCPCS: 36415; 80061; 80076; 85610

== ENCOUNTER 2020-12-26 10:41 | Outpatient (RCR) | payer MEDICARE, OTHER, SELFPAY ==
[2020-12-08 13:10] LABS: Prothrombin Time Fingerstick 22.6 SEC (11.9-14.4)
[2020-12-26 10:51] LABS: INR Fingerstick 2.5; Prothrombin Time Fingerstick 28.3 SEC (11.9-14.4)
== END 2020-12-26 18:00 | disposition home or self-care (01) ==
LOC: LAB 10:41
PROVIDERS: PCP Internal Medicine; Referring Provider Internal Medicine Cardiovascular Disease; Visit Provider Internal Medicine Cardiovascular Disease
DX: I48.20 Chronic atrial fibrillation, unspecified (principal); Z79.01 Long term (current) use of anticoagulants
CPT/HCPCS: 36416; 85610

== ENCOUNTER 2021-01-29 12:49 | Outpatient (RCR) | payer MEDICARE, OTHER, SELFPAY ==
[2021-01-29 13:01] LABS: INR Fingerstick 2.3; Prothrombin Time Fingerstick 26.2 SEC (11.9-14.4)
== END 2021-01-29 18:00 | disposition home or self-care (01) ==
LOC: LAB 12:49
PROVIDERS: PCP Internal Medicine; Referring Provider Internal Medicine Cardiovascular Disease; Visit Provider Internal Medicine Cardiovascular Disease
DX: I48.20 Chronic atrial fibrillation, unspecified (principal); Z79.01 Long term (current) use of anticoagulants
CPT/HCPCS: 36416; 85610

== ENCOUNTER 2021-03-01 10:26 | Outpatient (RCR) | payer MEDICARE, OTHER, SELFPAY ==
[2021-02-07 00:34] VITALS: BMI 38.7
[2021-03-02 09:01] LABS: INR Fingerstick 2.3
== END 2021-03-01 18:00 | disposition home or self-care (01) ==
LOC: LAB 10:26
PROVIDERS: PCP Internal Medicine; Referring Provider Internal Medicine Cardiovascular Disease; Visit Provider Internal Medicine Cardiovascular Disease
DX: I48.20 Chronic atrial fibrillation, unspecified (principal); Z79.01 Long term (current) use of anticoagulants
CPT/HCPCS: 36416; 85610

== ENCOUNTER 2021-03-30 15:04 | Outpatient (RCR) | payer MEDICARE, OTHER, SELFPAY ==
[2021-03-09 00:37] VITALS: BMI 38.7
[2021-03-30 16:56] LABS: INR Fingerstick 2.8
== END 2021-04-08 05:05 | disposition home or self-care (01) ==
LOC: LAB 15:04
PROVIDERS: PCP Internal Medicine; Referring Provider Internal Medicine Cardiovascular Disease; Visit Provider Internal Medicine Cardiovascular Disease
DX: I48.20 Chronic atrial fibrillation, unspecified (principal); Z79.01 Long term (current) use of anticoagulants
CPT/HCPCS: 36416; 85610

== ENCOUNTER 2021-04-24 10:49 | Outpatient (RCR) | payer MEDICARE, OTHER, SELFPAY ==
[2021-04-08 05:05] VITALS: BMI 38.7
[2021-04-24 11:05] LABS: INR Fingerstick 2.5; Prothrombin Time Fingerstick 28.4 SEC (11.9-14.4)
== END 2021-05-08 18:00 | disposition home or self-care (01) ==
LOC: LAB 10:49
PROVIDERS: PCP Internal Medicine; Referring Provider Internal Medicine Cardiovascular Disease; Visit Provider Internal Medicine Cardiovascular Disease
DX: I48.20 Chronic atrial fibrillation, unspecified (principal); Z79.01 Long term (current) use of anticoagulants
CPT/HCPCS: 36416; 85610

== ENCOUNTER 2021-05-21 13:31 | Outpatient (RCR) | payer MEDICARE, OTHER, SELFPAY ==
[2021-05-09 03:49] VITALS: BMI 38.7
[2021-05-21 13:50] LABS: INR Fingerstick 2.4; Prothrombin Time Fingerstick 26.7 SEC (11.9-14.4)
== END 2021-06-09 18:00 | disposition home or self-care (01) ==
LOC: LAB 13:31
PROVIDERS: PCP Internal Medicine; Referring Provider Internal Medicine Cardiovascular Disease; Visit Provider Internal Medicine Cardiovascular Disease
DX: I48.20 Chronic atrial fibrillation, unspecified (principal); Z79.01 Long term (current) use of anticoagulants
CPT/HCPCS: 36416; 85610

== ENCOUNTER 2021-06-28 11:18 | Outpatient (RCR) | payer MEDICARE, OTHER, SELFPAY ==
[2021-06-11 02:34] VITALS: BMI 38.7
[2021-06-28 11:30] LABS: INR Fingerstick 2.1; Prothrombin Time Fingerstick 24.8 SEC (11.9-14.4)
== END 2021-07-09 18:00 | disposition home or self-care (01) ==
LOC: LAB 11:18
PROVIDERS: PCP Internal Medicine; Referring Provider Internal Medicine Cardiovascular Disease; Visit Provider Internal Medicine Cardiovascular Disease
DX: I48.20 Chronic atrial fibrillation, unspecified (principal); Z79.01 Long term (current) use of anticoagulants
CPT/HCPCS: 36416; 85610

== ENCOUNTER 2021-07-31 13:22 | Outpatient (RCR) | payer MEDICARE, OTHER, SELFPAY ==
[2021-07-10 02:22] VITALS: BMI 38.7
== END 2021-07-31 23:59 | disposition home or self-care (01) ==
LOC: LAB 13:22
PROVIDERS: PCP Internal Medicine; Referring Provider Internal Medicine Cardiovascular Disease; Visit Provider Internal Medicine Cardiovascular Disease
DX: I48.20 Chronic atrial fibrillation, unspecified (principal); Z79.01 Long term (current) use of anticoagulants

== ENCOUNTER 2021-08-20 13:52 | Outpatient (CLI) | payer MEDICARE, OTHER, SELFPAY ==
--- NOTE | 2021-08-20 13:55 | BI_ITS ---
MAMMOGRAPHY - BILATERAL SCREENING 3-D TOMOSYNTHESIS REASON FOR EXAM: Female, 80 years old. SCREENING PERTINENT HISTORY: No significant family history. TECHNIQUE: 2-D mammograms and 3-D Tomosynthesis of the breast (s) were performed. CAD was performed. COMPARISON: 06/08/2020 FINDINGS: The breast composition is composed of scattered fibroglandular density. Scattered benign calcifications are seen. No dense spiculated masses or suspicious microcalcifications are identified. No architectural distortion is identified. There is no skin thickening or retraction. There has been no significant change since the prior study. BI/SCRN MAMM (CAD)W/LEFTY BILAT IMPRESSION: No mammographic signs of malignancy. Routine yearly mammograms recommended. ASSESSMENT CATEGORY: BIRADS Category 1: Negative. A letter regarding these results will be sent to the patient by the facility within 30 days. FOLLOW UP RECOMMENDATION: Yearly follow up mammogram recommended. (A) Approximately 10% of breast cancers are not detected by mammography. A normal mammogram should not delay biopsy of a clinically suspicious abnormality. Electronically Signed: Bakari Westbrook MD at 16:11 EDT ,
== END 2021-08-20 23:59 | disposition home or self-care (01) ==
LOC: OPBI 13:54
PROVIDERS: PCP Internal Medicine; Visit Provider Obstetrics & Gynecology
DX: Z12.31 Encounter for screening mammogram for malignant neoplasm of breast (principal)
CPT/HCPCS: 77063; 77067

== ENCOUNTER 2021-08-30 11:30 | Outpatient (RCR) | payer MEDICARE, OTHER, SELFPAY ==
[2021-08-07 10:30] VITALS: BMI 38.7
[2021-08-30 11:56] LABS: INR Fingerstick 2.8; Prothrombin Time Fingerstick 31.7 SEC (11.7-14.9)
== END 2021-09-06 18:00 | disposition home or self-care (01) ==
LOC: LAB 11:30
PROVIDERS: PCP Internal Medicine; Referring Provider Internal Medicine Cardiovascular Disease; Visit Provider Internal Medicine Cardiovascular Disease
DX: I48.20 Chronic atrial fibrillation, unspecified (principal); Z79.01 Long term (current) use of anticoagulants
CPT/HCPCS: 36416; 85610

== ENCOUNTER 2021-09-26 09:45 | Outpatient (RCR) | payer MEDICARE, OTHER, SELFPAY ==
[2021-09-07 03:29] VITALS: BMI 38.7
[2021-09-26 10:39] LABS: International Normalized Ratio 2.6; Prothrombin Time (Protime)PT. 27.3 SECONDS (11.7-14.9)
[2021-09-26 10:58] LABS: AST(SGOT) 22 U/L (15-37); Alanine Aminotransfer ALT/SGPT 25 U/L (13-56); Albumin, Serum 3.2 g/dL (3.2-5.0); Alkaline Phosphatase 59 U/L (45-117); Bilirubin, Direct 0.18 mg/dL (0.00-0.30); Cholesterol 158 mg/dL (200); Globulin 3.7 g/dL (2.2-4.2); High Density Lipoprotein 70 mg/dL; Protein, Total 6.9 g/dL (6.4-8.2); Triglycerides 131 mg/dL; Very Low Density Lipoprotein 26 mg/dL (5-40)
== END 2021-09-26 18:00 | disposition home or self-care (01) ==
LOC: LAB 09:45
PROVIDERS: Nurse Practitioner Family; PCP Internal Medicine; Referring Provider Internal Medicine Cardiovascular Disease; Visit Provider Internal Medicine Cardiovascular Disease
DX: I48.20 Chronic atrial fibrillation, unspecified (principal); Z79.01 Long term (current) use of anticoagulants; E78.00 Pure hypercholesterolemia, unspecified; E78.2 Mixed hyperlipidemia
CPT/HCPCS: 36415; 80061; 80076; 85610

== ENCOUNTER 2021-10-23 10:58 | Outpatient (RCR) | payer MEDICARE, OTHER, SELFPAY ==
[2021-10-07 04:38] VITALS: BMI 38.7
[2021-10-23 11:11] LABS: INR Fingerstick 1.8; Prothrombin Time Fingerstick 21.7 SEC (11.7-14.9)
== END 2021-10-23 18:00 | disposition home or self-care (01) ==
LOC: LAB 10:58
PROVIDERS: PCP Internal Medicine; Referring Provider Internal Medicine Cardiovascular Disease; Visit Provider Internal Medicine Cardiovascular Disease
DX: I48.20 Chronic atrial fibrillation, unspecified (principal); Z79.01 Long term (current) use of anticoagulants
CPT/HCPCS: 36416; 85610

== ENCOUNTER 2021-12-03 11:12 | Outpatient (RCR) | payer MEDICARE, OTHER, SELFPAY ==
[2021-11-06 21:27] VITALS: BMI 38.7
[2021-11-08 13:40] LABS: INR Fingerstick 2.2
[2021-12-03 11:20] LABS: Prothrombin Time Fingerstick 23.3 SEC (11.7-14.9)
== END 2021-12-03 23:59 | disposition home or self-care (01) ==
LOC: LAB 11:12
PROVIDERS: PCP Internal Medicine; Referring Provider Internal Medicine Cardiovascular Disease; Visit Provider Internal Medicine Cardiovascular Disease
DX: I48.20 Chronic atrial fibrillation, unspecified (principal); Z79.01 Long term (current) use of anticoagulants
CPT/HCPCS: 36416; 85610

== ENCOUNTER 2021-12-26 13:32 | Outpatient (RCR) | payer MEDICARE, OTHER, SELFPAY ==
[2021-12-07 07:44] VITALS: BMI 38.7
[2021-12-26 13:50] LABS: INR Fingerstick 2.3; Prothrombin Time Fingerstick 27.3 SEC (11.7-14.9)
== END 2022-01-06 03:10 | disposition home or self-care (01) ==
LOC: LAB 13:32
PROVIDERS: PCP Internal Medicine; Referring Provider Internal Medicine Cardiovascular Disease; Visit Provider Internal Medicine Cardiovascular Disease
DX: I48.20 Chronic atrial fibrillation, unspecified (principal); Z79.01 Long term (current) use of anticoagulants
CPT/HCPCS: 36416; 85610

== ENCOUNTER 2022-01-22 10:19 | Outpatient (RCR) | payer MEDICARE, OTHER, SELFPAY ==
[2022-01-06 03:11] VITALS: BMI 38.7
[2022-01-22 10:30] LABS: INR Fingerstick 2.3; Prothrombin Time Fingerstick 26.7 SEC (11.7-14.9)
== END 2022-01-22 18:00 | disposition home or self-care (01) ==
LOC: LAB 10:19
PROVIDERS: PCP Internal Medicine; Referring Provider Internal Medicine Cardiovascular Disease; Visit Provider Internal Medicine Cardiovascular Disease
DX: I48.20 Chronic atrial fibrillation, unspecified (principal); Z79.01 Long term (current) use of anticoagulants
CPT/HCPCS: 36416; 85610

== ENCOUNTER → 2022-02-05 | Outpatient (CLI) | payer MEDICARE, OTHER, SELFPAY ==
[2022-02-05 16:04] LABS: ALB/GLOB Ratio 0.9 RATIO (0.9-2.4); AST(SGOT) 22 U/L (15-37); Alanine Aminotransfer ALT/SGPT 26 U/L (13-56); Albumin, Serum 3.1 g/dL (3.2-5.0); Alkaline Phosphatase 56 U/L (45-117); Anion Gap 5 (5-15); BUN 24 mg/dL (7-18); BUN/Creat Ratio 21.8 RATIO (10-20); Calcium,Total 10.2 mg/dL (8.5-10.1); Chloride 108 mmol/L (98-107); EST Glomerular Filtration Rate 51 mL/min (>60); Est Glom Filt Rate - Afr Amer 62 mL/min (>60); Globulin 3.5 g/dL (2.2-4.2); Glucose 105 mg/dL (74-106); Magnesium 2.1 mg/dL (1.6-2.6); Potassium 3.7 mmol/L (3.5-5.1); Protein, Total 6.6 g/dL (6.4-8.2); Sodium Level 142 mmol/L (136-145); Vitamin B12 > 2000 pg/mL (211-911)
== END | disposition home or self-care (01) ==
PROVIDERS: PCP Internal Medicine; Referring Provider Physician Assistant; Visit Provider Physician Assistant
DX: I10 Essential (primary) hypertension (principal); R25.2 Cramp and spasm
CPT/HCPCS: 36415; 80053; 82607; 83735

== ENCOUNTER 2022-02-19 10:22 | Outpatient (RCR) | payer MEDICARE, OTHER, SELFPAY ==
[2022-02-07 00:23] VITALS: BMI 38.7
[2022-02-19 10:30] LABS: INR Fingerstick 2.7
== END 2022-02-19 18:00 | disposition home or self-care (01) ==
LOC: LAB 10:22
PROVIDERS: PCP Internal Medicine; Referring Provider Internal Medicine Cardiovascular Disease; Visit Provider Internal Medicine Cardiovascular Disease
DX: I48.20 Chronic atrial fibrillation, unspecified (principal); Z79.01 Long term (current) use of anticoagulants
CPT/HCPCS: 36416; 85610

== ENCOUNTER → 2022-03-06 | Outpatient (CLI) | payer MEDICARE, OTHER, SELFPAY ==
[2022-03-06 12:41] LABS: Absolute Lymphocyte Count 0.81 X10^3/uL (0.83-4.51); Absolute Neutrophil Count 4.1 X10^3/uL (2.0-7.7); Basophil# 0.05 X10^3/uL; Basophil% 0.9 % (0-1); Eosinophil# 0.16 X10^3/uL; Eosinophils% 2.9 % (0-5); Hematocrit 46.7 % (37-47); Hemoglobin 14.6 g/dL (12.0-15.0); Lymphocyte # 0.81 X10^3/ul (0.83-4.51); Lymphocyte % 14.5 % (19-41); Mean Corp Hgb Conc 31.3 g/dL (32-36); Mean Corpuscular Hgb 28.1 pg (27.0-32.0); Monocyte# 0.45 X10^3/uL; Monocyte% 8.1 % (0-10); NRBC Flagged by Analyzer 0 % (0-5); Neutrophil # 4.08 X10^3/uL (2.7-7.7); Neutrophil % 73.2 % (47-70); Platelet Count 182 K/mm3 (150-450); RBC Distribution Width CV 13.7 % (11.6-14.6); RBC Distribution Width SD 45.9 fl (35.1-43.9); Red Blood Count 5.19 M/mm3 (4.2-5.4); White Blood Count 5.6 K/mm3 (4.4-11.0)
[2022-03-06 13:07] LABS: Vitamin B12 > 2000 pg/mL (211-911)
== END | disposition home or self-care (01) ==
LOC: BIMLAB 10:36
PROVIDERS: PCP Internal Medicine; Referring Provider Physician Assistant; Visit Provider Physician Assistant
DX: R74.8 Abnormal levels of other serum enzymes (principal)
CPT/HCPCS: 36415; 82607; 85025

== ENCOUNTER 2022-03-27 10:40 | Outpatient (RCR) | payer MEDICARE, OTHER, SELFPAY ==
[2022-03-08 23:32] VITALS: BMI 38.7
[2022-03-27 11:36] LABS: International Normalized Ratio 2.6; Prothrombin Time (Protime)PT. 27.4 SECONDS (11.7-14.9)
[2022-03-27 11:48] LABS: ALB/GLOB Ratio 0.9 RATIO (0.9-2.4); AST(SGOT) 22 U/L (15-37); Alanine Aminotransfer ALT/SGPT 24 U/L (13-56); Albumin, Serum 3.3 g/dL (3.2-5.0); Alkaline Phosphatase 64 U/L (45-117); Anion Gap 4 (5-15); BUN 24 mg/dL (7-18); BUN/Creat Ratio 23.5 RATIO (10-20); Bilirubin, Direct 0.22 mg/dL (0.00-0.30); Calcium,Total 10.2 mg/dL (8.5-10.1); Chloride 106 mmol/L (98-107); Creatinine, Serum 1.02 mg/dL (0.55-1.02); EST Glomerular Filtration Rate 56 mL/min (>60); Est Glom Filt Rate - Afr Amer 67 mL/min (>60); Globulin 3.7 g/dL (2.2-4.2); Glucose 98 mg/dL (74-106); Potassium 3.7 mmol/L (3.5-5.1); Sodium Level 141 mmol/L (136-145)
[2022-03-27 11:57] LABS: Cholesterol 155 mg/dL (200); High Density Lipoprotein 70 mg/dL; Triglycerides 87 mg/dL; Very Low Density Lipoprotein 17 mg/dL (5-40)
== END 2022-03-27 18:00 | disposition home or self-care (01) ==
LOC: LAB 10:40
PROVIDERS: Nurse Practitioner Family; PCP Internal Medicine; Referring Provider Internal Medicine Cardiovascular Disease; Visit Provider Internal Medicine Cardiovascular Disease
DX: I48.20 Chronic atrial fibrillation, unspecified (principal); Z79.01 Long term (current) use of anticoagulants; R74.8 Abnormal levels of other serum enzymes; I10 Essential (primary) hypertension; E78.00 Pure hypercholesterolemia, unspecified; E78.2 Mixed hyperlipidemia
CPT/HCPCS: 36415; 80053; 80061; 82248; 85610

== ENCOUNTER 2022-04-19 12:21 | Outpatient (RCR) | payer MEDICARE, OTHER, SELFPAY ==
[2022-04-09 10:19] VITALS: BMI 38.7
[2022-04-19 12:40] LABS: INR Fingerstick 2.1; Prothrombin Time Fingerstick 24.3 SEC (11.7-14.9)
== END 2022-05-08 18:00 | disposition home or self-care (01) ==
LOC: LAB 12:21
PROVIDERS: PCP Internal Medicine; Referring Provider Internal Medicine Cardiovascular Disease; Visit Provider Internal Medicine Cardiovascular Disease
DX: I48.20 Chronic atrial fibrillation, unspecified (principal); Z79.01 Long term (current) use of anticoagulants
CPT/HCPCS: 36416; 85610

== ENCOUNTER 2022-05-21 12:26 | Outpatient (RCR) | payer MEDICARE, OTHER, SELFPAY ==
[2022-05-09 01:30] VITALS: BMI 38.7
[2022-05-21 12:41] LABS: INR Fingerstick 2.5; Prothrombin Time Fingerstick 28.7 SEC (11.7-14.9)
== END 2022-05-21 18:00 | disposition home or self-care (01) ==
LOC: LAB 12:26
PROVIDERS: PCP Internal Medicine; Referring Provider Internal Medicine Cardiovascular Disease; Visit Provider Internal Medicine Cardiovascular Disease
DX: I48.20 Chronic atrial fibrillation, unspecified (principal); Z79.01 Long term (current) use of anticoagulants
CPT/HCPCS: 36416; 85610

== ENCOUNTER 2022-06-25 12:31 | Outpatient (RCR) | payer MEDICARE, OTHER, SELFPAY ==
[2022-06-09 05:29] VITALS: BMI 38.7
[2022-06-25 13:53] LABS: International Normalized Ratio 2.8; Prothrombin Time (Protime)PT. 29.3 SECONDS (11.7-14.9)
[2022-06-25 14:16] LABS: Vitamin B12 > 2000 pg/mL (211-911)
== END 2022-06-25 15:00 | disposition home or self-care (01) ==
LOC: LAB 12:31
PROVIDERS: PCP Internal Medicine; Referring Provider Internal Medicine Cardiovascular Disease; Visit Provider Internal Medicine Cardiovascular Disease
DX: I48.20 Chronic atrial fibrillation, unspecified (principal); Z79.01 Long term (current) use of anticoagulants; R74.8 Abnormal levels of other serum enzymes
CPT/HCPCS: 36415; 82607; 85610

== ENCOUNTER 2022-07-23 10:50 | Outpatient (RCR) | payer MEDICARE, OTHER, SELFPAY ==
[2022-07-10 08:32] VITALS: BMI 38.7
[2022-07-23 11:06] LABS: INR Fingerstick 2.6; Prothrombin Time Fingerstick 30.2 SEC (11.7-14.9)
== END 2022-07-23 18:00 | disposition home or self-care (01) ==
LOC: LAB 10:50
PROVIDERS: PCP Internal Medicine; Referring Provider Internal Medicine Cardiovascular Disease; Visit Provider Internal Medicine Cardiovascular Disease
DX: I48.20 Chronic atrial fibrillation, unspecified (principal); Z79.01 Long term (current) use of anticoagulants
CPT/HCPCS: 36416; 85610

== ENCOUNTER 2022-08-14 10:07 | Outpatient (RCR) | payer MEDICARE, OTHER, SELFPAY ==
[2022-08-06 22:52] VITALS: BMI 38.7
[2022-08-14 10:16] LABS: INR Fingerstick 2.3; Prothrombin Time Fingerstick 26.7 SEC (11.7-14.9)
== END 2022-09-06 21:15 | disposition home or self-care (01) ==
LOC: LAB 10:07
PROVIDERS: PCP Internal Medicine; Referring Provider Internal Medicine Cardiovascular Disease; Visit Provider Internal Medicine Cardiovascular Disease
DX: I48.20 Chronic atrial fibrillation, unspecified (principal); Z79.01 Long term (current) use of anticoagulants
CPT/HCPCS: 36416; 85610

== ENCOUNTER 2022-10-01 08:56 | Outpatient (RCR) | payer MEDICARE, OTHER, SELFPAY ==
[2022-09-06 21:15] VITALS: BMI 38.7
[2022-09-16 15:00] LABS: Absolute Lymphocyte Count 0.78 X10^3/uL (0.83-4.51); Absolute Neutrophil Count 3.7 X10^3/uL (2.0-7.7); Basophil# 0.06 X10^3/uL; Basophil% 1.2 % (0-1); Eosinophil# 0.14 X10^3/uL; Eosinophils% 2.7 % (0-5); Hematocrit 43.1 % (37-47); Lymphocyte # 0.78 X10^3/ul (0.83-4.51); Lymphocyte % 15.2 % (19-41); Mean Corp Hgb Conc 32.5 g/dL (32-36); Mean Corpuscular Hgb 28.6 pg (27.0-32.0); Mean Corpuscular Volume 88.1 fL (81-99); Mean Platelet Vol. 10.6 fl (6.2-12.0); Monocyte# 0.46 X10^3/uL; Monocyte% 8.9 % (0-10); NRBC Flagged by Analyzer 0 % (0-5); Neutrophil # 3.69 X10^3/uL (2.7-7.7); Neutrophil % 71.8 % (47-70); Platelet Count 182 K/mm3 (150-450); RBC Distribution Width CV 13.9 % (11.6-14.6); RBC Distribution Width SD 45.3 fl (35.1-43.9); Red Blood Count 4.89 M/mm3 (4.2-5.4); White Blood Count 5.1 K/mm3 (4.4-11.0)
[2022-09-16 15:13] LABS: International Normalized Ratio 3.1; Prothrombin Time (Protime)PT. 31.3 SECONDS (11.7-14.9)
[2022-09-16 15:37] LABS: AST(SGOT) 24 U/L (15-37); Alanine Aminotransfer ALT/SGPT 24 U/L (13-56); Albumin, Serum 3.2 g/dL (3.2-5.0); Alkaline Phosphatase 56 U/L (45-117); Anion Gap 2 (5-15); BUN 32 mg/dL (7-18); BUN/Creat Ratio 33.5 RATIO (10-20); Bilirubin, Direct 0.22 mg/dL (0.00-0.30); Calcium,Total 10.2 mg/dL (8.5-10.1); Chloride 104 mmol/L (98-107); Cholesterol 139 mg/dL (200); Creatinine, Serum 0.96 mg/dL (0.55-1.02); EST Glomerular Filtration Rate 60 mL/min (>60); Est Glom Filt Rate - Afr Amer 72 mL/min (>60); Globulin 3.2 g/dL (2.2-4.2); Glucose 95 mg/dL (74-106); High Density Lipoprotein 67 mg/dL; Potassium 3.5 mmol/L (3.5-5.1); Protein, Total 6.4 g/dL (6.4-8.2); Sodium Level 137 mmol/L (136-145); Triglycerides 63 mg/dL; Very Low Density Lipoprotein 13 mg/dL (5-40)
[2022-09-16 16:22] LABS: Vitamin B12 1586 pg/mL (211-911); Vitamin D,25 Hydroxy 36.8 ng/mL
[2022-10-01 09:05] LABS: INR Fingerstick 2.7; Prothrombin Time Fingerstick 29.1 SEC (11.7-14.9)
== END 2022-10-06 02:19 | disposition home or self-care (01) ==
LOC: LAB 08:56
PROVIDERS: PCP Internal Medicine; Referring Provider Internal Medicine Cardiovascular Disease; Visit Provider Internal Medicine Cardiovascular Disease
DX: I48.20 Chronic atrial fibrillation, unspecified (principal); Z79.01 Long term (current) use of anticoagulants; I10 Essential (primary) hypertension; M85.80 Other specified disorders of bone density and structure, unspecified site
CPT/HCPCS: 36415; 36416; 80053; 80061; 82248; 82306; 82607; 85025; 85610

== ENCOUNTER → 2022-10-08 | Outpatient (CLI) | payer MEDICARE, OTHER, SELFPAY ==
--- NOTE | 2022-10-08 14:47 | BD_ITS ---
STUDY: DUAL ENERGY X-RAY ABSORPTIOMETRY / DXA REASON FOR EXAM: Female, 82 years old. Osteopenia TECHNIQUE: Bone Mineral Density (BMD) measurements of lumbar spine and bilateral hips were obtained. COMPARISON: Comparison is made with prior study of January 06, 2014. FINDINGS: Lumbar Spine (L1-L4): g/cm2 (0.772) / T-score (-2.2) / Z-score (0.4) Findings are suggestive of osteopenia with a high fracture risk. Left Femur Total: g/cm2 (0.704) / T-score (-1.9) / Z-score (0.1) Left Femoral Neck: g/cm2 (0.555) / T-score (-2.6) / Z-score (-0.3) Right Femur Total: g/cm2 (0.718) / T-score (-1.8) / Z-score (0.2) Right Femoral Neck: g/cm2 (0.589) / T-score (-2.3) / Z-score (0.0) The T-Scores on the most recent prior examination were: Lumbar Spine (L1-L4): There has been worsening of bone density since the previous examination. Left Femur Total: which represents a worsening of 9.9%. Right Femur Total: which represents a worsening of 8.3%. BD/Dexa Bone Density Study IMPRESSION: The patient is considered osteoporotic as outlined below according to World [place] Organization (WHO) criteria with a high fracture risk. There has been worsening of bone density since the previous examination. Reference Information: The T-score is the number of standard deviations above or below the standard which is normal for young adults at their peak bone mineral density. The World Health Organization (WHO) interprets the T-scores as follows: Above -1 Normal bone density Between -1 and -2.5 Osteopenia Equal to / or below -2.5 Osteoporosis As a practical clinical guideline, osteopenia may be graded as follows: Mild -1 through -1.5 Moderate -1.6 through -2.0 Severe -2.1 through -2.4 The Z-score is the number of standard deviations above or below age-matched controls. A Z-score of less than -1.5 would be considered abnormal. References: 1. NIH Osteoporosis and Related Bone Diseases www osteo.org 2. International Society for Clinical Densitometry www iscd.org 3. National Osteoporosis Foundation www nof.org Electronically Signed: Matheus Abarca MD at 13:28 EDT ,
== END | disposition home or self-care (01) ==
LOC: OPBD 14:34
PROVIDERS: PCP Internal Medicine; Referring Provider Internal Medicine; Visit Provider Internal Medicine
DX: Z78.0 Asymptomatic menopausal state (principal)
CPT/HCPCS: 77080

== ENCOUNTER 2022-10-30 10:47 | Outpatient (RCR) | payer MEDICARE, OTHER, SELFPAY ==
[2022-10-06 02:19] VITALS: BMI 38.7
[2022-10-30 11:00] LABS: INR Fingerstick 3.1; Prothrombin Time Fingerstick 33.2 SEC (11.7-14.9)
== END 2022-10-30 12:00 | disposition home or self-care (01) ==
LOC: LAB 10:47
PROVIDERS: PCP Internal Medicine; Referring Provider Internal Medicine Cardiovascular Disease; Visit Provider Internal Medicine Cardiovascular Disease
DX: I48.20 Chronic atrial fibrillation, unspecified (principal); Z79.01 Long term (current) use of anticoagulants
CPT/HCPCS: 36416; 85610

== ENCOUNTER 2022-11-18 14:50 | Outpatient (RCR) | payer MEDICARE, OTHER, SELFPAY ==
[2022-11-07 08:24] VITALS: BMI 38.7
[2022-11-18 15:04] LABS: INR Fingerstick 2.7; Prothrombin Time Fingerstick 29.4 SEC (11.7-14.9)
== END 2022-11-18 18:00 | disposition home or self-care (01) ==
LOC: LAB 14:50
PROVIDERS: PCP Internal Medicine; Referring Provider Internal Medicine Cardiovascular Disease; Visit Provider Internal Medicine Cardiovascular Disease
DX: I48.20 Chronic atrial fibrillation, unspecified (principal); Z79.01 Long term (current) use of anticoagulants
CPT/HCPCS: 36416; 85610

== ENCOUNTER 2022-12-18 10:54 | Outpatient (RCR) | payer MEDICARE, OTHER, SELFPAY ==
[2022-12-07 01:40] VITALS: BMI 38.7
[2022-12-18 11:03] LABS: INR Fingerstick 2.2; Prothrombin Time Fingerstick 24.1 SEC (11.7-14.9)
== END 2023-01-06 18:00 | disposition home or self-care (01) ==
LOC: LAB 10:54
PROVIDERS: Internal Medicine Cardiovascular Disease; PCP Internal Medicine; Referring Provider Physician Assistant Medical; Visit Provider Physician Assistant Medical
DX: I48.20 Chronic atrial fibrillation, unspecified (principal); Z79.01 Long term (current) use of anticoagulants
CPT/HCPCS: 36416; 85610

== ENCOUNTER 2023-02-03 09:19 | Outpatient (RCR) | payer MEDICARE, OTHER, SELFPAY ==
[2023-01-07 01:48] VITALS: BMI 38.7
[2023-01-17 15:12] LABS: INR Fingerstick 1.8; Prothrombin Time Fingerstick 20.2 SEC (11.7-14.9)
[2023-02-03 09:26] LABS: INR Fingerstick 3.7; Prothrombin Time Fingerstick 39.5 SEC (11.7-14.9)
[2023-02-03 09:51] LABS: International Normalized Ratio 2.5; Prothrombin Time (Protime)PT. 27.5 SECONDS (11.7-14.9)
== END 2023-02-03 18:00 | disposition home or self-care (01) ==
LOC: LAB 09:19
PROVIDERS: PCP Internal Medicine; Referring Provider Physician Assistant Medical; Visit Provider Physician Assistant Medical
DX: I48.20 Chronic atrial fibrillation, unspecified (principal); Z79.01 Long term (current) use of anticoagulants
CPT/HCPCS: 36415; 36416; 85610

== ENCOUNTER 2023-02-20 14:40 | Outpatient (RCR) | payer MEDICARE, OTHER, SELFPAY ==
[2023-02-06 23:30] VITALS: BMI 38.7
[2023-02-20 16:43] LABS: International Normalized Ratio 3.1; Prothrombin Time (Protime)PT. 32.2 SECONDS (11.7-14.9)
[2023-02-20 17:03] LABS: Anion Gap 2 (5-15); BUN 27 mg/dL (7-18); Chloride 105 mmol/L (98-107); Creatinine, Serum 1.04 mg/dL (0.55-1.02); EST Glomerular Filtration Rate 54 mL/min (>60); Est Glom Filt Rate - Afr Amer 66 mL/min (>60); Glucose 100 mg/dL (74-106); Potassium 4.1 mmol/L (3.5-5.1); Sodium Level 138 mmol/L (136-145)
[2023-02-20 17:24] LABS: Vitamin B12 1403 pg/mL (211-911)
== END 2023-03-08 23:59 ==
LOC: BIMLAB 14:40
PROVIDERS: PCP Internal Medicine; Referring Provider Physician Assistant Medical; Visit Provider Physician Assistant Medical
DX: I48.20 Chronic atrial fibrillation, unspecified (principal); Z79.01 Long term (current) use of anticoagulants
CPT/HCPCS: 36415; 80048; 82607; 85610

== ENCOUNTER → 2023-02-20 | Outpatient (CLI) | payer MEDICARE, OTHER, SELFPAY ==
--- NOTE | 2023-02-20 15:13 | RAD_ITS ---
STUDY: X-RAY - RIGHT KNEE REASON FOR EXAM: Female, 82 years old. Right Knee Pain TECHNIQUE: 3 view(s) of the knee. COMPARISON: None. FINDINGS: Normal visualized distal femur. Normal visualized proximal tibia and fibula. Normal proximal tibiofibular articulation. There is no demonstrated fracture. Normal medial femorotibial compartment. Normal lateral femorotibial compartment. Normal patellofemoral articulation. There is no demonstrated joint effusion. The soft tissue structures are unremarkable. RAD/Knee 3 Views IMPRESSION: Normal x-ray examination of the knee. Electronically Signed: Eddie Sandhu MD at 17:53 EDT ,
== END | disposition home or self-care (01) ==
PROVIDERS: PCP Internal Medicine; Referring Provider Internal Medicine; Visit Provider Internal Medicine
DX: M25.561 Pain in right knee (principal); I48.20 Chronic atrial fibrillation, unspecified; R74.8 Abnormal levels of other serum enzymes; Z79.01 Long term (current) use of anticoagulants; I10 Essential (primary) hypertension
CPT/HCPCS: 36415; 73562; 80048; 82607; 85610

== ENCOUNTER 2023-03-14 15:53 | Outpatient (RCR) | payer MEDICARE, OTHER, SELFPAY ==
[2023-03-09 00:10] VITALS: BMI 38.7
[2023-03-14 16:03] LABS: INR Fingerstick 2.5; Prothrombin Time Fingerstick 26.6 SEC (11.7-14.9)
== END 2023-04-08 23:59 ==
LOC: BIMLAB 15:53
PROVIDERS: PCP Internal Medicine; Referring Provider Physician Assistant Medical; Visit Provider Physician Assistant Medical
DX: I48.20 Chronic atrial fibrillation, unspecified (principal); Z79.01 Long term (current) use of anticoagulants
CPT/HCPCS: 36416; 85610

== ENCOUNTER 2023-04-15 10:31 | Outpatient (RCR) | payer MEDICARE, OTHER, SELFPAY ==
[2023-04-09 00:34] VITALS: BMI 38.7
[2023-04-15 10:43] LABS: INR Fingerstick 2.8
== END 2023-05-08 23:59 ==
LOC: BIMLAB 10:31
PROVIDERS: PCP Internal Medicine; Referring Provider Physician Assistant Medical; Visit Provider Physician Assistant Medical
DX: I48.20 Chronic atrial fibrillation, unspecified (principal); Z79.01 Long term (current) use of anticoagulants
CPT/HCPCS: 36416; 85610

== ENCOUNTER 2023-05-12 09:10 | Outpatient (RCR) | payer MEDICARE, OTHER, SELFPAY ==
[2023-05-09 00:40] VITALS: BMI 38.7
[2023-05-12 10:25] LABS: Prothrombin Time (Protime)PT. 31.4 SECONDS (11.7-14.9)
[2023-05-12 10:57] LABS: AST(SGOT) 17 U/L (15-37); Alanine Aminotransfer ALT/SGPT 24 U/L (13-56); Albumin, Serum 3.1 g/dL (3.2-5.0); Alkaline Phosphatase 59 U/L (45-117); Bilirubin, Direct 0.25 mg/dL (0.00-0.30); Cholesterol 153 mg/dL (200); Globulin 3.4 g/dL (2.2-4.2); High Density Lipoprotein 76 mg/dL; Protein, Total 6.5 g/dL (6.4-8.2); Triglycerides 64 mg/dL; Very Low Density Lipoprotein 13 mg/dL (5-40)
== END 2023-06-08 18:00 | disposition home or self-care (01) ==
LOC: LAB 09:10
PROVIDERS: PCP Internal Medicine; Referring Provider Physician Assistant Medical; Visit Provider Physician Assistant Medical
DX: I48.20 Chronic atrial fibrillation, unspecified (principal); Z79.01 Long term (current) use of anticoagulants; E78.2 Mixed hyperlipidemia
CPT/HCPCS: 36415; 80061; 80076; 85610

== ENCOUNTER 2023-06-16 14:07 | Outpatient (RCR) | payer MEDICARE, OTHER, SELFPAY ==
[2023-06-08 23:23] VITALS: BMI 38.7
[2023-06-16 14:26] LABS: INR Fingerstick 3.1; Prothrombin Time Fingerstick 32.9 SEC (11.7-14.9)
== END 2023-06-16 18:00 | disposition home or self-care (01) ==
LOC: LAB 14:07
PROVIDERS: PCP Internal Medicine; Referring Provider Physician Assistant Medical; Visit Provider Physician Assistant Medical
DX: I48.20 Chronic atrial fibrillation, unspecified (principal); Z79.01 Long term (current) use of anticoagulants
CPT/HCPCS: 36416; 85610

== ENCOUNTER → 2023-06-25 | Outpatient (CLI) | payer MEDICARE, OTHER, SELFPAY ==
[2023-06-25 16:45] LABS: Anion Gap 4 (5-15); BUN 26 mg/dL (7-18); BUN/Creat Ratio 23.9 RATIO (10-20); Calcium,Total 10.3 mg/dL (8.5-10.1); Chloride 108 mmol/L (98-107); Creatinine, Serum 1.09 mg/dL (0.55-1.02); EST Glomerular Filtration Rate 51 mL/min (>60); Est Glom Filt Rate - Afr Amer 62 mL/min (>60); Glucose 99 mg/dL (74-106); Sodium Level 143 mmol/L (136-145)
[2023-06-25 16:53] LABS: Absolute Lymphocyte Count 0.64 X10^3/uL (0.83-4.51); Absolute Neutrophil Count 4.6 X10^3/uL (2.0-7.7); Basophil# 0.06 X10^3/uL; Eosinophil# 0.21 X10^3/uL; Eosinophils% 3.5 % (0-5); Hematocrit 45.1 % (37-47); Hemoglobin 14.3 g/dL (12.0-15.0); Lymphocyte # 0.64 X10^3/ul (0.83-4.51); Lymphocyte % 10.6 % (19-41); Mean Corp Hgb Conc 31.7 g/dL (32-36); Mean Corpuscular Hgb 28.3 pg (27.0-32.0); Mean Corpuscular Volume 89.1 fL (81-99); Mean Platelet Vol. 11.4 fl (6.2-12.0); Monocyte# 0.48 X10^3/uL; NRBC Flagged by Analyzer 0 % (0-5); Neutrophil # 4.59 X10^3/uL (2.7-7.7); Neutrophil % 76.4 % (47-70); Platelet Count 168 K/mm3 (150-450); RBC Distribution Width CV 13.8 % (11.6-14.6); RBC Distribution Width SD 45.2 fl (35.1-43.9); Red Blood Count 5.06 M/mm3 (4.2-5.4)
== END | disposition home or self-care (01) ==
LOC: BIMLAB 14:36
PROVIDERS: PCP Internal Medicine; Visit Provider Internal Medicine
DX: E78.2 Mixed hyperlipidemia (principal); Z79.01 Long term (current) use of anticoagulants
CPT/HCPCS: 36415; 80048; 85025

== ENCOUNTER 2023-07-23 10:19 | Outpatient (RCR) | payer MEDICARE, OTHER, SELFPAY ==
[2023-07-09 22:51] VITALS: BMI 38.7
[2023-07-23 10:28] LABS: INR Fingerstick 2.9; Prothrombin Time Fingerstick 29.3 SEC (11.7-14.9)
== END 2023-08-07 18:00 | disposition home or self-care (01) ==
LOC: LAB 10:19
PROVIDERS: PCP Internal Medicine; Referring Provider Physician Assistant Medical; Visit Provider Physician Assistant Medical
DX: I48.20 Chronic atrial fibrillation, unspecified (principal); Z79.01 Long term (current) use of anticoagulants
CPT/HCPCS: 36416; 85610

== ENCOUNTER 2023-08-19 10:50 | Outpatient (RCR) | payer MEDICARE, OTHER, SELFPAY ==
[2023-08-08 02:38] VITALS: BMI 38.7
[2023-08-19 11:09] LABS: INR Fingerstick 2.6; Prothrombin Time Fingerstick 26.9 SEC (11.7-14.9)
== END 2023-09-07 01:28 | disposition home or self-care (01) ==
LOC: LAB 10:50
PROVIDERS: PCP Internal Medicine; Referring Provider Physician Assistant Medical; Visit Provider Physician Assistant Medical
DX: I48.20 Chronic atrial fibrillation, unspecified (principal); Z79.01 Long term (current) use of anticoagulants
CPT/HCPCS: 36416; 85610

== ENCOUNTER 2023-09-30 09:28 | Outpatient (RCR) | payer MEDICARE, OTHER, SELFPAY ==
[2023-09-07 01:28] VITALS: BMI 38.7
[2023-09-23 09:46] LABS: INR Fingerstick 3.3; Prothrombin Time Fingerstick 32.7 SEC (11.7-14.9)
[2023-09-30 09:48] LABS: INR Fingerstick 3.1; Prothrombin Time Fingerstick 31.1 SEC (11.7-14.9)
== END 2023-10-07 23:55 | disposition home or self-care (01) ==
LOC: LAB 09:28
PROVIDERS: PCP Internal Medicine; Referring Provider Physician Assistant Medical; Visit Provider Physician Assistant Medical
DX: I48.20 Chronic atrial fibrillation, unspecified (principal); Z79.01 Long term (current) use of anticoagulants
CPT/HCPCS: 36416; 85610

== ENCOUNTER 2023-10-14 11:35 | Outpatient (RCR) | payer MEDICARE, OTHER, SELFPAY ==
[2023-10-07 23:55] VITALS: BMI 38.7
[2023-10-14 11:59] LABS: INR Fingerstick 3.1; Prothrombin Time Fingerstick 30.9 SEC (11.7-14.9)
== END 2023-10-14 18:00 | disposition home or self-care (01) ==
LOC: LAB 11:35
PROVIDERS: PCP Internal Medicine; Referring Provider Physician Assistant Medical; Visit Provider Physician Assistant Medical
DX: I48.20 Chronic atrial fibrillation, unspecified (principal); Z79.01 Long term (current) use of anticoagulants
CPT/HCPCS: 36416; 85610

== ENCOUNTER 2023-11-14 13:05 | Outpatient (RCR) | payer MEDICARE, OTHER, SELFPAY ==
[2023-11-10 08:32] VITALS: BMI 38.7
[2023-11-14 13:19] LABS: INR Fingerstick 2.5; Prothrombin Time Fingerstick 25.2 SEC (11.7-14.9)
== END 2023-11-14 18:00 | disposition home or self-care (01) ==
LOC: LAB 13:05
PROVIDERS: PCP Internal Medicine; Referring Provider Physician Assistant Medical; Visit Provider Physician Assistant Medical
DX: Z79.01 Long term (current) use of anticoagulants; I48.91 Unspecified atrial fibrillation
CPT/HCPCS: 36416; 85610

== ENCOUNTER 2023-12-17 11:53 | Outpatient (RCR) | payer MEDICARE, OTHER, SELFPAY ==
[2023-12-08 04:02] VITALS: BMI 38.7
[2023-12-17 12:14] LABS: INR Fingerstick 2.9; Prothrombin Time Fingerstick 28.9 SEC (11.7-14.9)
== END 2024-01-07 18:00 | disposition home or self-care (01) ==
LOC: LAB 11:53
PROVIDERS: PCP Internal Medicine; Referring Provider Physician Assistant Medical; Visit Provider Physician Assistant Medical
DX: I48.20 Chronic atrial fibrillation, unspecified (principal); Z79.01 Long term (current) use of anticoagulants
CPT/HCPCS: 36416; 85610

== ENCOUNTER → 2023-12-26 | Outpatient (CLI) | payer MEDICARE, OTHER, SELFPAY ==
[2023-12-26 16:39] LABS: Anion Gap 5 (5-15); BUN 31 mg/dL (7-18); BUN/Creat Ratio 25.4 RATIO (10-20); Chloride 105 mmol/L (98-107); Creatinine, Serum 1.22 mg/dL (0.55-1.02); EST Glomerular Filtration Rate 45 mL/min (>60); Est Glom Filt Rate - Afr Amer 54 mL/min (>60); Glucose 102 mg/dL (74-106); Potassium 4.1 mmol/L (3.5-5.1); Sodium Level 138 mmol/L (136-145)
== END | disposition home or self-care (01) ==
LOC: BIMLAB 14:38
PROVIDERS: PCP Internal Medicine; Referring Provider Internal Medicine; Visit Provider Internal Medicine
DX: I10 Essential (primary) hypertension (principal)
CPT/HCPCS: 36415; 80048

== ENCOUNTER 2024-02-03 14:26 | Outpatient (RCR) | payer MEDICARE, OTHER, SELFPAY ==
[2024-01-07 22:58] VITALS: BMI 38.7
[2024-01-15 10:52] LABS: International Normalized Ratio 3.2; Prothrombin Time (Protime)PT. 32.5 SECONDS (11.7-14.9)
[2024-01-15 11:10] LABS: AST(SGOT) 22 U/L (15-37); Alanine Aminotransfer ALT/SGPT 26 U/L (13-56); Albumin, Serum 3.1 g/dL (3.2-5.0); Alkaline Phosphatase 57 U/L (45-117); Bilirubin, Direct 0.22 mg/dL (0.00-0.30); Cholesterol 143 mg/dL (200); Globulin 3.3 g/dL (2.2-4.2); High Density Lipoprotein 75 mg/dL; Protein, Total 6.4 g/dL (6.4-8.2); Triglycerides 52 mg/dL; Very Low Density Lipoprotein 10 mg/dL (5-40)
[2024-02-03 14:56] LABS: INR Fingerstick 2.8; Prothrombin Time Fingerstick 28.2 SEC (11.7-14.9)
== END 2024-02-03 18:00 | disposition home or self-care (01) ==
LOC: LAB 14:26
PROVIDERS: PCP Internal Medicine; Referring Provider Physician Assistant Medical; Visit Provider Physician Assistant Medical
DX: I48.20 Chronic atrial fibrillation, unspecified (principal); Z79.01 Long term (current) use of anticoagulants; E78.00 Pure hypercholesterolemia, unspecified
CPT/HCPCS: 36415; 36416; 80061; 80076; 85610

== ENCOUNTER 2024-03-02 11:19 | Outpatient (RCR) | payer MEDICARE, OTHER, SELFPAY ==
[2024-02-08 02:51] VITALS: BMI 38.7
[2024-03-02 11:43] LABS: INR Fingerstick 2.4; Prothrombin Time Fingerstick 24.6 SEC (11.7-14.9)
== END 2024-03-02 18:00 | disposition home or self-care (01) ==
LOC: LAB 11:19
PROVIDERS: PCP Internal Medicine; Referring Provider Physician Assistant Medical; Visit Provider Physician Assistant Medical
DX: I48.20 Chronic atrial fibrillation, unspecified (principal); Z79.01 Long term (current) use of anticoagulants
CPT/HCPCS: 36416; 85610

== ENCOUNTER 2024-04-01 14:03 | Outpatient (RCR) | payer MEDICARE, OTHER, SELFPAY ==
[2024-03-09 04:39] VITALS: BMI 38.7
[2024-04-07 12:15] LABS: INR Fingerstick 2.9; Prothrombin Time Fingerstick 30.6 SEC (11.7-14.9)
== END 2024-04-01 18:00 | disposition home or self-care (01) ==
LOC: LAB 14:03
PROVIDERS: PCP Internal Medicine; Referring Provider Physician Assistant Medical; Visit Provider Physician Assistant Medical
DX: I48.20 Chronic atrial fibrillation, unspecified (principal); Z79.01 Long term (current) use of anticoagulants
CPT/HCPCS: 36416; 85610

== ENCOUNTER 2024-04-27 11:05 | Outpatient (RCR) | payer MEDICARE, OTHER, SELFPAY ==
[2024-04-08 21:03] VITALS: BMI 38.7
[2024-04-27 11:24] LABS: INR Fingerstick 2.6
== END 2024-05-08 18:00 | disposition home or self-care (01) ==
LOC: LAB 11:05
PROVIDERS: PCP Internal Medicine; Referring Provider Physician Assistant Medical; Visit Provider Physician Assistant Medical
DX: I48.20 Chronic atrial fibrillation, unspecified (principal); Z79.01 Long term (current) use of anticoagulants
CPT/HCPCS: 36416; 85610

== ENCOUNTER 2024-06-03 10:43 | Outpatient (RCR) | payer MEDICARE, OTHER, SELFPAY ==
[2024-05-09 01:38] VITALS: BMI 38.7
[2024-06-03 10:55] LABS: INR Fingerstick 2.3; Prothrombin Time Fingerstick 25.1 SEC (11.7-14.9)
== END 2024-06-03 18:00 | disposition home or self-care (01) ==
LOC: LAB 10:43
PROVIDERS: PCP Internal Medicine; Referring Provider Physician Assistant Medical; Visit Provider Physician Assistant Medical
DX: I48.20 Chronic atrial fibrillation, unspecified (principal); Z79.01 Long term (current) use of anticoagulants
CPT/HCPCS: 36416; 85610

== ENCOUNTER → 2024-06-23 | Outpatient (CLI) | payer MEDICARE, OTHER, SELFPAY ==
[2024-06-23 16:43] LABS: Absolute Lymphocyte Count 0.75 X10^3/uL (0.83-4.51); Absolute Neutrophil Count 4.5 X10^3/uL (2.0-7.7); Basophil# 0.05 X10^3/uL; Basophil% 0.8 % (0-1); Eosinophil# 0.17 X10^3/uL; Eosinophils% 2.9 % (0-5); Hematocrit 42.2 % (37-47); Hemoglobin 13.7 g/dL (12.0-15.0); Lymphocyte # 0.75 X10^3/ul (0.83-4.51); Lymphocyte % 12.6 % (19-41); Mean Corp Hgb Conc 32.5 g/dL (32-36); Mean Corpuscular Hgb 28.9 pg (27.0-32.0); Mean Platelet Vol. 10.7 fl (6.2-12.0); Monocyte% 8.4 % (0-10); NRBC Flagged by Analyzer 0 % (0-5); Neutrophil # 4.47 X10^3/uL (2.7-7.7); Neutrophil % 75.1 % (47-70); Platelet Count 171 K/mm3 (150-450); RBC Distribution Width SD 45.7 fl (35.1-43.9); Red Blood Count 4.74 M/mm3 (4.2-5.4)
[2024-06-23 17:02] LABS: Vitamin B12 > 2000 pg/mL (211-911); Vitamin D,25 Hydroxy 53.2 ng/mL
[2024-06-23 17:05] LABS: Anion Gap 6 (5-15); BUN 27 mg/dL (7-18); BUN/Creat Ratio 26.7 RATIO (10-20); Calcium,Total 10.2 mg/dL (8.5-10.1); Chloride 104 mmol/L (98-107); Creatinine, Serum 1.01 mg/dL (0.55-1.02); EST Glomerular Filtration Rate 56 mL/min (>60); Est Glom Filt Rate - Afr Amer 68 mL/min (>60); Glucose 104 mg/dL (74-106); Potassium 3.7 mmol/L (3.5-5.1); Sodium Level 138 mmol/L (136-145)
== END | disposition home or self-care (01) ==
LOC: BIMLAB 14:57
PROVIDERS: PCP Internal Medicine; Referring Provider Internal Medicine; Visit Provider Internal Medicine
DX: I48.20 Chronic atrial fibrillation, unspecified (principal); R74.8 Abnormal levels of other serum enzymes; I10 Essential (primary) hypertension; M81.0 Age-related osteoporosis without current pathological fracture
CPT/HCPCS: 36415; 80048; 82306; 82607; 85025

== ENCOUNTER 2024-07-05 11:31 | Outpatient (RCR) | payer MEDICARE, OTHER, SELFPAY ==
[2024-06-09 04:48] VITALS: BMI 38.7
[2024-07-05 12:18] LABS: International Normalized Ratio 2.4; Prothrombin Time (Protime)PT. 26.5 SECONDS (11.7-14.9)
[2024-07-05 12:41] LABS: AST(SGOT) 21 U/L (15-37); Alanine Aminotransfer ALT/SGPT 21 U/L (13-56); Albumin, Serum 3.2 g/dL (3.2-5.0); Alkaline Phosphatase 59 U/L (45-117); Bilirubin, Direct 0.25 mg/dL (0.00-0.30); Cholesterol 145 mg/dL (200); Globulin 3.4 g/dL (2.2-4.2); High Density Lipoprotein 81 mg/dL; Protein, Total 6.6 g/dL (6.4-8.2); Triglycerides 58 mg/dL; Very Low Density Lipoprotein 12 mg/dL (5-40)
== END 2024-07-05 18:00 | disposition home or self-care (01) ==
LOC: LAB 11:31
PROVIDERS: PCP Internal Medicine; Referring Provider Physician Assistant Medical; Visit Provider Physician Assistant Medical
DX: I48.20 Chronic atrial fibrillation, unspecified (principal); Z79.01 Long term (current) use of anticoagulants; E78.00 Pure hypercholesterolemia, unspecified
CPT/HCPCS: 36415; 80061; 80076; 85610

== ENCOUNTER → 2024-07-27 | Outpatient (CLI) | payer MEDICARE, OTHER, SELFPAY ==
[2024-07-27 13:35] LABS: Anion Gap 1 (5-15); BUN 28 mg/dL (7-18); BUN/Creat Ratio 26.4 RATIO (10-20); Calcium,Total 10.2 mg/dL (8.5-10.1); Chloride 104 mmol/L (98-107); Creatinine, Serum 1.06 mg/dL (0.55-1.02); EST Glomerular Filtration Rate 53 mL/min (>60); Est Glom Filt Rate - Afr Amer 64 mL/min (>60); Glucose 96 mg/dL (74-106); Potassium 3.9 mmol/L (3.5-5.1); Sodium Level 140 mmol/L (136-145)
[2024-07-27 14:58] LABS: Vitamin B12 > 2000 pg/mL (211-911)
[2024-07-29 15:30] LABS: Vitamin D,25 Hydroxy 57.7 ng/mL
== END | disposition home or self-care (01) ==
LOC: BIMLAB 11:04
PROVIDERS: PCP Internal Medicine; Referring Provider Internal Medicine; Visit Provider Internal Medicine
DX: I10 Essential (primary) hypertension (principal); M81.0 Age-related osteoporosis without current pathological fracture; R74.8 Abnormal levels of other serum enzymes
CPT/HCPCS: 36415; 80048; 82306; 82607

== ENCOUNTER 2024-08-03 11:11 | Outpatient (RCR) | payer MEDICARE, OTHER, SELFPAY ==
[2024-07-10 04:45] VITALS: BMI 38.7
[2024-08-03 11:20] LABS: INR Fingerstick 2.6; Prothrombin Time Fingerstick 27.6 SEC (11.7-14.9)
== END 2024-08-06 18:00 | disposition home or self-care (01) ==
LOC: LAB 11:11
PROVIDERS: PCP Internal Medicine; Referring Provider Physician Assistant Medical; Visit Provider Physician Assistant Medical
DX: I48.20 Chronic atrial fibrillation, unspecified (principal); Z79.01 Long term (current) use of anticoagulants
CPT/HCPCS: 36416; 85610

== ENCOUNTER 2024-08-30 13:23 | Outpatient (RCR) | payer MEDICARE, OTHER, SELFPAY ==
[2024-08-07 07:37] VITALS: BMI 38.7
[2024-08-31 08:38] LABS: INR Fingerstick 2.5
== END 2024-08-30 18:00 | disposition home or self-care (01) ==
LOC: LAB 13:23
PROVIDERS: PCP Internal Medicine; Referring Provider Physician Assistant Medical; Visit Provider Physician Assistant Medical
DX: I48.20 Chronic atrial fibrillation, unspecified (principal); Z79.01 Long term (current) use of anticoagulants
CPT/HCPCS: 36416; 85610

== ENCOUNTER 2024-10-01 12:45 | Outpatient (RCR) | payer MEDICARE, OTHER, SELFPAY ==
[2024-09-06 22:47] VITALS: BMI 38.7
[2024-10-01 12:52] LABS: INR Fingerstick 2.5; Prothrombin Time Fingerstick 26.8 SEC (11.7-14.9)
== END 2024-10-06 18:00 | disposition home or self-care (01) ==
LOC: LAB 12:45
PROVIDERS: PCP Internal Medicine; Referring Provider Physician Assistant Medical; Visit Provider Physician Assistant Medical
DX: I48.20 Chronic atrial fibrillation, unspecified (principal); Z79.01 Long term (current) use of anticoagulants
CPT/HCPCS: 36416; 85610

== ENCOUNTER → 2024-10-14 | Outpatient (CLI) | payer MEDICARE, OTHER, SELFPAY ==
--- NOTE | 2024-10-14 13:46 | BD_ITS ---
PROCEDURE: DEXA BONE DENSITY STUDY 10/14/2024 REASON FOR EXAM: OSTEOPOROSIS F, age 84 y/o . Postmenopausal. TECHNIQUE: DXA scan of sites with data reported below. RE[facility]ENCE LINKS: [facility] COMPARISON: Comparison is made with prior study dated October 08, 2022. FINDINGS: BMD and T-SCORES Lumbar spine: 0.780 g/cm2, T-score -2.2 Levels: L1 through L4 Change from prior: Improvement of 1%. Left femoral neck: 0.558 g/cm2, T-score -2.6 Femoral neck comparison data not recommended for monitoring change. Left total hip: 0.729 g/cm2, T-score -1.7 Change from prior: Improvement of 3.5%. Right femoral neck: 0.589 g/cm2, T-score -2.3 Femoral neck comparison data not recommended for monitoring change. Right total hip: 0.740 g/cm2, T-score -1.7 Change from prior: Improvement of 3%. The World Health Organization has defined the following categories based on bone density: Normal bone density: T-score equal to or greater than -1.0 Osteopenia: T-score between -1.0 and -2.5 Osteoporosis: T-score equal to or less than -2.5 (Note: FRAX is not to be reported in setting of normal range bone density, osteoporosis on DEXA, known history of osteoporosis, prior osteoporotic hip or vertebral fracture, or for any patient undergoing pharmacological treatment for bone loss.) The National Osteoporosis Foundation (NOF) recommends pharmacological treatment for patients with a FRAX 10-year risk of 3% or higher for a hip fracture, or 20% or higher for a major osteoporotic fracture, to prevent osteoporosis and reduce fracture risk. The patient does meet the pharmacological treatment recommendations for prevention of osteoporosis. BD/Dexa Bone Density Study IMPRESSION: OSTEOPOROSIS. Recommend follow-up as clinically warranted. Reading Location: [facility]
== END | disposition home or self-care (01) ==
LOC: OPBD 13:45
PROVIDERS: PCP Internal Medicine; Referring Provider Internal Medicine; Visit Provider Internal Medicine
DX: M81.0 Age-related osteoporosis without current pathological fracture (principal)
CPT/HCPCS: 77080

== ENCOUNTER 2024-11-05 13:30 | Outpatient (RCR) | payer MEDICARE, OTHER, SELFPAY ==
[2024-10-06 22:07] VITALS: BMI 38.7
[2024-11-05 14:42] LABS: International Normalized Ratio 2.7; Prothrombin Time (Protime)PT. 28.9 SECONDS (11.7-14.9)
== END 2024-11-05 18:00 | disposition home or self-care (01) ==
LOC: LAB 13:30
PROVIDERS: PCP Internal Medicine; Referring Provider Physician Assistant Medical; Visit Provider Physician Assistant Medical
DX: I48.20 Chronic atrial fibrillation, unspecified (principal); Z79.01 Long term (current) use of anticoagulants
CPT/HCPCS: 36415; 85610

== ENCOUNTER 2024-12-03 12:46 | Outpatient (RCR) | payer MEDICARE, OTHER, SELFPAY ==
[2024-11-07 19:17] VITALS: BMI 38.7
[2024-12-03 12:58] LABS: INR Fingerstick 2.4; Prothrombin Time Fingerstick 25.5 SEC (11.7-14.9)
== END 2024-12-03 18:00 | disposition home or self-care (01) ==
LOC: LAB 12:46
PROVIDERS: PCP Internal Medicine; Referring Provider Physician Assistant Medical; Visit Provider Physician Assistant Medical
DX: I48.20 Chronic atrial fibrillation, unspecified (principal); Z79.01 Long term (current) use of anticoagulants
CPT/HCPCS: 36416; 85610

== ENCOUNTER 2025-01-04 10:58 | Outpatient (RCR) | payer MEDICARE, OTHER, SELFPAY ==
[2025-01-04 11:32] LABS: Hematocrit 42.6 % (37-47); Hemoglobin 13.9 g/dL (12.0-15.0); Immature Granulocytes Count 0.010 X10^3/uL (0.0-0.0); Mean Corp Hgb Conc 32.6 g/dL (32-36); Mean Corpuscular Volume 89.3 fL (81-99); Mean Platelet Vol. 10.3 fl (6.2-12.0); NRBC Flagged by Analyzer 0 % (0-5); Platelet Count 167 K/mm3 (150-450); RBC Distribution Width CV 13.8 % (11.6-14.6); RBC Distribution Width SD 45.1 fl (35.1-43.9); Red Blood Count 4.77 M/mm3 (4.2-5.4); White Blood Count 5.1 K/mm3 (4.4-11.0)
[2025-01-04 11:41] LABS: Prothrombin Time (Protime)PT. 31.5 SECONDS (11.7-14.9)
[2025-01-04 12:07] LABS: AST(SGOT) 27 U/L (<=31); Alanine Aminotransfer ALT/SGPT 22 U/L (<=34); Albumin, Serum 3.7 g/dL (3.4-4.8); Alkaline Phosphatase 61 U/L (35-104); Anion Gap 9 (5-15); BUN 26 mg/dL (4-19); BUN/Creat Ratio 27.4 RATIO (10-20); Calcium,Total 10.1 mg/dL (7.6-11.0); Carbon Dioxide 27.0 mmol/L (21.0-32.0); Chloride 104 mmol/L (98-108); Globulin 2.7 g/dL (2.2-4.2); Glucose 97 mg/dL (70-99); Potassium 4.1 mmol/L (3.3-5.1)
[2025-01-04 12:08] LABS: PTHIN 112 pg/mL (11-61)
[2025-01-04 17:02] LABS: Vitamin D,25 Hydroxy 43.5 ng/mL (30-100)
== END 2025-01-06 21:33 | disposition home or self-care (01) ==
LOC: LAB 10:58
PROVIDERS: PCP Internal Medicine; Referring Provider Physician Assistant Medical; Visit Provider Physician Assistant Medical
DX: I48.20 Chronic atrial fibrillation, unspecified (principal); Z79.01 Long term (current) use of anticoagulants; E83.52 Hypercalcemia; I10 Essential (primary) hypertension
CPT/HCPCS: 36415; 80053; 82306; 83970; 85025; 85610

== ENCOUNTER 2025-02-02 13:38 | Outpatient (RCR) | payer MEDICARE, OTHER, SELFPAY ==
[2025-02-02 13:46] LABS: INR Fingerstick 2.4
== END 2025-02-02 18:00 | disposition home or self-care (01) ==
LOC: LAB 13:38
PROVIDERS: PCP Internal Medicine; Referring Provider Physician Assistant Medical; Visit Provider Physician Assistant Medical
DX: I48.20 Chronic atrial fibrillation, unspecified (principal); Z79.01 Long term (current) use of anticoagulants
CPT/HCPCS: 36416; 85610

== ENCOUNTER 2025-03-04 12:38 | Outpatient (RCR) | payer MEDICARE, OTHER, SELFPAY ==
[2025-03-04 12:45] LABS: INR Fingerstick 2.2
== END 2025-03-08 18:00 | disposition home or self-care (01) ==
LOC: LAB 12:38
PROVIDERS: PCP Internal Medicine; Referring Provider Physician Assistant Medical; Visit Provider Physician Assistant Medical
DX: I48.20 Chronic atrial fibrillation, unspecified (principal); Z79.01 Long term (current) use of anticoagulants
CPT/HCPCS: 36416; 85610

== ENCOUNTER 2025-04-04 12:46 | Outpatient (RCR) | payer MEDICARE, OTHER, SELFPAY ==
[2025-04-04 12:55] LABS: INR Fingerstick 2.5
== END 2025-04-04 18:00 | disposition home or self-care (01) ==
LOC: LAB 12:46
PROVIDERS: PCP Internal Medicine; Referring Provider Physician Assistant Medical; Visit Provider Physician Assistant Medical
DX: I48.20 Chronic atrial fibrillation, unspecified (principal); Z79.01 Long term (current) use of anticoagulants
CPT/HCPCS: 36416; 85610

== ENCOUNTER 2025-05-03 11:34 | Outpatient (RCR) | payer MEDICARE, OTHER, SELFPAY ==
[2025-05-03 12:20] LABS: Prothrombin Time (Protime)PT. 33.2 SECONDS (11.7-14.9)
== END 2025-05-08 18:00 | disposition home or self-care (01) ==
LOC: LAB 11:34
PROVIDERS: Internal Medicine Cardiovascular Disease; PCP Internal Medicine; Referring Provider Physician Assistant Medical; Visit Provider Physician Assistant Medical
DX: I48.20 Chronic atrial fibrillation, unspecified (principal); Z79.01 Long term (current) use of anticoagulants; E78.00 Pure hypercholesterolemia, unspecified
CPT/HCPCS: 36415; 80061; 80076; 85610

== ENCOUNTER 2025-05-30 10:07 | Outpatient (RCR) | payer MEDICARE, OTHER, SELFPAY ==
[2025-05-30 11:06] LABS: Prothrombin Time (Protime)PT. 28.7 SECONDS (11.7-14.9)
[2025-05-30 11:27] LABS: PTHIN 97 pg/mL (11-61)
[2025-05-30 11:30] LABS: Anion Gap 9 (5-15); BUN 23 mg/dL (4-19); BUN/Creat Ratio 23.9 RATIO (10-20); Calcium,Total 10.6 mg/dL (7.6-11.0); Carbon Dioxide 28.8 mmol/L (21.0-32.0); Chloride 101 mmol/L (98-108); Glucose 98 mg/dL (70-99); Potassium 4.1 mmol/L (3.3-5.1)
== END 2025-05-30 18:00 | disposition home health service (06) ==
LOC: LAB 10:07
PROVIDERS: Internal Medicine Endocrinology, Diabetes & Metabolism; PCP Internal Medicine; Referring Provider Physician Assistant Medical; Visit Provider Physician Assistant Medical
DX: I48.20 Chronic atrial fibrillation, unspecified (principal); Z79.01 Long term (current) use of anticoagulants; R79.89 Other specified abnormal findings of blood chemistry; E11.9 Type 2 diabetes mellitus without complications
CPT/HCPCS: 36415; 80048; 83970; 85610